=== PATIENT | male | born 1975 | race African-American/Black ===

== ENCOUNTER 2018-05-14 14:09 | Inpatient (IN) | payer MEDICAID ==
[~2018-05-14] VITALS: Ht 183.5 cm; Wt 162.5 kg
[~2018-05-14 14:09] MED LIST: ETOMIDATE 2MG/ML 10ML VIAL IV ONE; SUCCINYLCHOLINE CHLORIDE 200MG/10ML IV ONE
[2018-05-14] MEDS ORDERED: FUROSEMIDE 40MG/4ML VIAL IV ONE (15:00)
[2018-05-14] MEDS ORDERED: NITROGLYCERIN OINT 1GM/INCH UDPKT TD ONE (15:00)
[2018-05-14] MEDS ORDERED: ASPIRIN 81MG TABLET PO ONE (15:00)
[2018-05-14] MEDS ORDERED: LORAZEPAM 2MG/ML CPJ IM ONE (15:45)
[2018-05-14] MEDS ORDERED: LORAZEPAM 2MG/ML CPJ ONE (16:28)
[2018-05-14] MEDS ORDERED: HALOPERIDOL LACTATE 5MG/ML VIAL IM ONE ×2 (16:32→17:00)
[2018-05-14] MEDS ORDERED: LORAZEPAM 2MG/ML CPJ IM STA (16:53)
[2018-05-14] MEDS ORDERED: LORAZEPAM 2MG/ML CPJ IV ONE (17:00)
[2018-05-14 17:06] LABS: CHLORIDE 97 mEq/L (98-107)
[2018-05-14 17:11] LABS: HEMATOCRIT. 47.7 % (42.0-52.0); HEMOGLOBIN. 14.5 g/dL (14.0-18.0); INR 1.6; MEAN CORPUSCULAR HEMOGLOBIN 27.5 pg (28.0-32.0); MEAN CORPUSCULAR VOLUME 90.3 fL (80.0-94.0); MEAN PLATELET VOLUME 10.3 fl (7.4-10.4); PARTIAL THROMBOPLASTIN TIME 25.2 sec (23.4-31.0); PLATELET 202 x1000/uL (130-400); PROTHROMBIN TIME 15.8 sec (9.1-11.1); RED BLOOD CELL COUNT 5.28 mill/uL (4.7-6.1); RED CELL DISTRIBUTION WIDTH 16.6 % (11.6-14.6)
[2018-05-14 17:19] LABS: PLATELET ESTIMATE NORMAL
[2018-05-14] MEDS ORDERED: PROPOFOL 10MG/ML 100ML 100 ML IV ONE (22:30)
[2018-05-14] MEDS ORDERED: PROPOFOL 10MG/ML 100ML 100 ML IV SCH (22:30)
[2018-05-14] MEDS ORDERED: SUCCINYLCHOLINE CHLORIDE 200MG/10ML IV ONE (22:30)
[2018-05-14] MEDS ORDERED: ETOMIDATE 2MG/ML 10ML VIAL IV ONE (22:30)
[2018-05-15] VITALS (23 sets, daily range): BP systolic 105–149; BP diastolic 69–110
[2018-05-15 00:15] LABS: BG BASE EXCESS 2.3 mmol/L (-2.0-2.0); BG CARBOXYHEMOGLOBIN 2.6 % (0.5-1.5); BG DEOXYHEMOGLOBIN 1.6 % (0.0-5.0); BG FRACTION INSPIRED OXYGEN 100; BG HCO3 ACT 32.4 mmol/L (22.0-26.0); BG METHEMOGLOBIN 0.3 % (0.0-1.5); BG OXYGEN SATURATION 98.4 % (92.0-98.5); BG OXYHEMOGLOBIN 95.5 % (94.0-97.0); BG PCO2 76.7 mmHg (35.0-45.0); BG PH 7.243 (7.350-7.450); BG PO2 132.4 mmHg (75.0-100.0); BG SAMPLE SITE RIGHT BRACHIAL; BG TIDAL VOLUME(mL) 550 mL; BG TOTAL HEMOGLOBIN 15.4 g/dL (12.0-18.0); BG VENT MODE 16; BG VENT RATE 16 set
[2018-05-15] MEDS: MIDAZOLAM HCL 50 MG in DEXTROSE 5% WATER 40 ML IV SCH ×2 (04:12→10:52)
[2018-05-15] MEDS ORDERED: ONDANSETRON HCL 4MG/2ML INJ IV PRN (08:30)
[2018-05-15 09:45] LABS: BG BASE EXCESS 8.5 mmol/L (-2.0-2.0); BG CARBOXYHEMOGLOBIN 1.4 % (0.5-1.5); BG DEOXYHEMOGLOBIN 0.5 % (0.0-5.0); BG FRACTION INSPIRED OXYGEN 90; BG HCO3 ACT 31.7 mmol/L (22.0-26.0); BG METHEMOGLOBIN 0.3 % (0.0-1.5); BG OXYGEN SATURATION 99.5 % (92.0-98.5); BG OXYHEMOGLOBIN 97.8 % (94.0-97.0); BG PCO2 38.4 mmHg (35.0-45.0); BG PH 7.534 (7.350-7.450); BG PO2 204.6 mmHg (75.0-100.0); BG SAMPLE SITE LEFT RADIAL; BG TIDAL VOLUME(mL) 650 mL; BG TOTAL HEMOGLOBIN 14.6 g/dL (12.0-18.0); BG VENT MODE VENT - A/C; BG VENT RATE 20 set
[2018-05-15] MEDS: IPRATROPIUM/ALBUTEROL 0.5-3(2.5)MG/3ML NEB HHN SCH ×2 (13:41→21:06)
[2018-05-15] MEDS: PROPOFOL 10MG/ML 100ML 100 ML IV PRN ×3 (13:49→21:43)
[2018-05-15] MEDS: FUROSEMIDE 40MG/4ML VIAL IVP SCH ×2 (13:56→20:39)
[2018-05-15] MEDS: PANTOPRAZOLE SODIUM 40 MG/VIAL IV SCH (13:56)
[2018-05-15] MEDS: ENOXAPARIN 40MG/0.4ML SYR SUBCUT SCH ×2 (13:57→20:43)
[2018-05-15] MEDS: IPRATROPIUM/ALBUTEROL 0.5-3(2.5)MG/3ML NEB HHN PRN (16:10)
[2018-05-16] VITALS (56 sets, daily range): BP systolic 71–174; BP diastolic 43–109
[2018-05-16] MEDS: PROPOFOL 10MG/ML 100ML 100 ML IV PRN ×6 (01:35→21:28)
[2018-05-16] MEDS: IPRATROPIUM/ALBUTEROL 0.5-3(2.5)MG/3ML NEB HHN SCH ×4 (02:30→20:21)
[2018-05-16] MEDS: DEXTROSE 50% WATER 50ML SYRINGE IV PRN ×2 (04:53→16:11)
[2018-05-16] MEDS: BLOOD SUGAR DIAGNOSTIC STRIP TEST SCH ×3 (06:00→18:00)
[2018-05-16 06:23] LABS: BASOPHILS % 0.4 % (0.0-2.0); EOSINOPHILS % 0.6 % (0.0-5.0); HEMATOCRIT. 47.8 % (42.0-52.0); HEMOGLOBIN. 15.2 g/dL (14.0-18.0); LYMPHOCYTES % 17.9 % (20.0-50.0); MEAN CORPUSCULAR HEMOGLOBIN 27.8 pg (28.0-32.0); MEAN CORPUSCULAR VOLUME 87.4 fL (80.0-94.0); MEAN PLATELET VOLUME 9.8 fl (7.4-10.4); MONOCYTES % 8.1 % (2.0-8.0); PLATELET 148 x1000/uL (130-400); RED BLOOD CELL COUNT 5.47 mill/uL (4.7-6.1); RED CELL DISTRIBUTION WIDTH 16.6 % (11.6-14.6)
[2018-05-16 06:44] LABS: CHLORIDE 100 mEq/L (98-107)
[2018-05-16 07:33] LABS: BG BASE EXCESS 9.6 mmol/L (-2.0-2.0); BG CARBOXYHEMOGLOBIN 1.8 % (0.5-1.5); BG DEOXYHEMOGLOBIN 3.1 % (0.0-5.0); BG HCO3 ACT 33.9 mmol/L (22.0-26.0); BG METHEMOGLOBIN 0.4 % (0.0-1.5); BG OXYGEN SATURATION 96.8 % (92.0-98.5); BG OXYHEMOGLOBIN 94.7 % (94.0-97.0); BG PH 7.505 (7.350-7.450); BG PO2 86.9 mmHg (75.0-100.0); BG SAMPLE SITE RIGHT RADIAL; BG TIDAL VOLUME(mL) 650 mL; BG VENT MODE VENT - A/C; BG VENT RATE 16 set
[2018-05-16] MEDS ORDERED: POTASSIUM CHLORIDE 20MEQ/PACKET PO NR (09:15)
[2018-05-16] MEDS: PANTOPRAZOLE SODIUM 40 MG/VIAL IV SCH (09:55)
[2018-05-16] MEDS: FUROSEMIDE 100MG/10ML VIAL IVP SCH ×3 (09:56→18:00)
[2018-05-16] MEDS: ENOXAPARIN 40MG/0.4ML SYR SUBCUT SCH ×2 (09:58→21:29)
[2018-05-17] VITALS (50 sets, daily range): BP systolic 89–126; BP diastolic 46–69
[2018-05-17] MEDS: BLOOD SUGAR DIAGNOSTIC STRIP TEST SCH
[2018-05-17] MEDS: PROPOFOL 10MG/ML 100ML 100 ML IV PRN ×6 (01:13→23:55)
[2018-05-17] MEDS: IPRATROPIUM/ALBUTEROL 0.5-3(2.5)MG/3ML NEB HHN SCH ×4 (02:02→20:25)
[2018-05-17 06:31] LABS: HEMATOCRIT. 45.5 % (42.0-52.0); HEMOGLOBIN. 14.4 g/dL (14.0-18.0); MEAN CORPUSCULAR HEMOGLOBIN 27.7 pg (28.0-32.0); MEAN CORPUSCULAR VOLUME 87.5 fL (80.0-94.0); MEAN PLATELET VOLUME 10.1 fl (7.4-10.4); PLATELET 163 x1000/uL (130-400); RED CELL DISTRIBUTION WIDTH 16.7 % (11.6-14.6)
[2018-05-17 06:55] LABS: CHLORIDE 100 mEq/L (98-107)
[2018-05-17 09:16] LABS: BG BASE EXCESS 14.8 mmol/L (-2.0-2.0); BG CARBOXYHEMOGLOBIN 1.4 % (0.5-1.5); BG DEOXYHEMOGLOBIN 2.8 % (0.0-5.0); BG FRACTION INSPIRED OXYGEN 50; BG HCO3 ACT 41.4 mmol/L (22.0-26.0); BG METHEMOGLOBIN 0.2 % (0.0-1.5); BG OXYGEN SATURATION 97.2 % (92.0-98.5); BG OXYHEMOGLOBIN 95.6 % (94.0-97.0); BG PCO2 57.5 mmHg (35.0-45.0); BG PH 7.475 (7.350-7.450); BG PO2 96.6 mmHg (75.0-100.0); BG SAMPLE SITE RIGHT RADIAL; BG TIDAL VOLUME(mL) 650 mL; BG TOTAL HEMOGLOBIN 15.2 g/dL (12.0-18.0); BG VENT MODE VENT - A/C; BG VENT RATE 12 set
[2018-05-17] MEDS: FUROSEMIDE 100MG/10ML VIAL IVP SCH ×2 (11:28→17:59)
[2018-05-17] MEDS: PANTOPRAZOLE SODIUM 40 MG/VIAL IV SCH (11:28)
[2018-05-17] MEDS ORDERED: LORAZEPAM 2MG/ML CPJ IV PRN ×2 (11:30)
[2018-05-17] MEDS: ENOXAPARIN 40MG/0.4ML SYR SUBCUT SCH ×2 (11:31→21:29)
[2018-05-17] MEDS: LORAZEPAM 2MG/ML CPJ IV PRN (11:38)
[2018-05-17] MEDS: SULFACETAMIDE SODIUM 10% OPHTH DROPS 15ML BOTHEYE SCH ×3 (13:33→21:35)
[2018-05-17 14:52] LABS: PLATELET ESTIMATE NORMAL
[2018-05-18] VITALS (49 sets, daily range): BP systolic 104–136; BP diastolic 48–74
[2018-05-18] MEDS: PROPOFOL 10MG/ML 100ML 100 ML IV PRN ×7 (02:23→20:22)
[2018-05-18] MEDS: IPRATROPIUM/ALBUTEROL 0.5-3(2.5)MG/3ML NEB HHN SCH ×4 (02:30→20:39)
[2018-05-18 05:01] LABS: HEMATOCRIT. 48.7 % (42.0-52.0); HEMOGLOBIN. 15.3 g/dL (14.0-18.0); MEAN CORPUSCULAR HEMOGLOBIN 27.9 pg (28.0-32.0); MEAN CORPUSCULAR VOLUME 88.8 fL (80.0-94.0); MEAN PLATELET VOLUME 10.5 fl (7.4-10.4); PLATELET 157 x1000/uL (130-400); RED BLOOD CELL COUNT 5.49 mill/uL (4.7-6.1); RED CELL DISTRIBUTION WIDTH 16.9 % (11.6-14.6)
[2018-05-18 05:19] LABS: CHLORIDE 99 mEq/L (98-107)
[2018-05-18] MEDS: FUROSEMIDE 100MG/10ML VIAL IVP SCH ×2 (06:58→17:18)
[2018-05-18] MEDS: BLOOD SUGAR DIAGNOSTIC STRIP TEST SCH ×4 (06:58→18:14)
[2018-05-18 07:22] LABS: PLATELET ESTIMATE NORMAL
[2018-05-18] MEDS: PANTOPRAZOLE SODIUM 40 MG/VIAL IV SCH (08:31)
[2018-05-18] MEDS: ENOXAPARIN 40MG/0.4ML SYR SUBCUT SCH ×2 (08:31→21:36)
[2018-05-18] MEDS: SULFACETAMIDE SODIUM 10% OPHTH DROPS 15ML BOTHEYE SCH ×4 (08:31→21:36)
[2018-05-18 08:57] LABS: BG BASE EXCESS 11.4 mmol/L (-2.0-2.0); BG CARBOXYHEMOGLOBIN 1.7 % (0.5-1.5); BG DEOXYHEMOGLOBIN 3.7 % (0.0-5.0); BG FRACTION INSPIRED OXYGEN 50; BG HCO3 ACT 38.5 mmol/L (22.0-26.0); BG METHEMOGLOBIN 0.4 % (0.0-1.5); BG OXYGEN SATURATION 96.2 % (92.0-98.5); BG OXYHEMOGLOBIN 94.2 % (94.0-97.0); BG PCO2 59.5 mmHg (35.0-45.0); BG PH 7.429 (7.350-7.450); BG PO2 84.6 mmHg (75.0-100.0); BG SAMPLE SITE RIGHT RADIAL; BG TIDAL VOLUME(mL) 650 mL; BG TOTAL HEMOGLOBIN 15.8 g/dL (12.0-18.0); BG VENT MODE VENT - A/C; BG VENT RATE 12 set
[2018-05-18] MEDS ORDERED: KCL 20MEQ/100ML PREMIX 100 ML IV SCH (18:00)
[2018-05-19] VITALS (37 sets, daily range): BP systolic 99–124; BP diastolic 51–70
[2018-05-19] MEDS: PROPOFOL 10MG/ML 100ML 100 ML IV PRN ×6 (00:37→21:55)
[2018-05-19] MEDS: BLOOD SUGAR DIAGNOSTIC STRIP TEST SCH ×2 (00:45→06:26)
[2018-05-19] MEDS: IPRATROPIUM/ALBUTEROL 0.5-3(2.5)MG/3ML NEB HHN SCH ×4 (02:02→20:24)
[2018-05-19 04:45] LABS: HEMATOCRIT. 47.7 % (42.0-52.0); HEMOGLOBIN. 14.8 g/dL (14.0-18.0); MEAN CORPUSCULAR HEMOGLOBIN 27.6 pg (28.0-32.0); MEAN CORPUSCULAR VOLUME 88.9 fL (80.0-94.0); MEAN PLATELET VOLUME 10.4 fl (7.4-10.4); PLATELET 151 x1000/uL (130-400); RED BLOOD CELL COUNT 5.37 mill/uL (4.7-6.1); RED CELL DISTRIBUTION WIDTH 16.5 % (11.6-14.6)
[2018-05-19 04:50] LABS: CHLORIDE 98 mEq/L (98-107)
[2018-05-19] MEDS: FUROSEMIDE 100MG/10ML VIAL IVP SCH (06:56)
[2018-05-19 07:33] LABS: BG BASE EXCESS 12.1 mmol/L (-2.0-2.0); BG DEOXYHEMOGLOBIN 4.1 % (0.0-5.0); BG FRACTION INSPIRED OXYGEN 50; BG HCO3 ACT 40.1 mmol/L (22.0-26.0); BG METHEMOGLOBIN 0.1 % (0.0-1.5); BG OXYGEN SATURATION 95.8 % (92.0-98.5); BG OXYHEMOGLOBIN 93.8 % (94.0-97.0); BG PCO2 65.4 mmHg (35.0-45.0); BG PH 7.405 (7.350-7.450); BG PO2 83.5 mmHg (75.0-100.0); BG SAMPLE SITE RIGHT RADIAL; BG TIDAL VOLUME(mL) 650 mL; BG TOTAL HEMOGLOBIN 15.4 g/dL (12.0-18.0); BG VENT MODE VENT - A/C; BG VENT RATE 12 set
[2018-05-19] MEDS: SULFACETAMIDE SODIUM 10% OPHTH DROPS 15ML BOTHEYE SCH ×4 (08:39→21:57)
[2018-05-19] MEDS: PANTOPRAZOLE SODIUM 40 MG/VIAL IV SCH (08:39)
[2018-05-19] MEDS: ENOXAPARIN 40MG/0.4ML SYR SUBCUT SCH ×2 (08:40→21:52)
[2018-05-19 09:54] LABS: PLATELET ESTIMATE NORMAL
[2018-05-19] MEDS ORDERED: LORAZEPAM 2MG/ML CPJ IV PRN (10:45)
[2018-05-19] MEDS ORDERED: LACTULOSE 20G/30ML UDC PO NR (11:30)
[2018-05-19] MEDS ORDERED: BISACODYL 10MG SUPP PR PRN (11:30)
[2018-05-19] MEDS: DOCUSATE SODIUM SUGAR FREE 100MG/10ML UDC NG SCH (12:09)
[2018-05-19] MEDS: ACETAMINOPHEN 325MG TABLET PO PRN ×2 (12:17→20:07)
[2018-05-19] MEDS: PIPERACILLIN/TAZ 3.375G PREMIX 50 ML IV SCH ×2 (16:31→21:53)
[2018-05-19 19:31] LABS: CLARITY URINE CLOUDY (CLEAR); COLOR URINE DARK YELLOW (YELLOW); KETONES URINE NEGATIVE (NEGATIVE); LEUKOCYTE ESTERASE URINE 1+ (NEGATIVE); NITRITE URINE NEGATIVE (NEGATIVE); OCCULT BLOOD URINE 3+ (NEGATIVE); PH URINE 8.5 (4.5-8.0); PROTEIN URINE 2+ (NEGATIVE); SPECIFIC GRAVITY URINE 1.029 (1.005-1.030)
[2018-05-19] MEDS: RISPERIDONE 1MG TABLET PO SCH (21:52)
[2018-05-19] MEDS: FUROSEMIDE 40 MG/4 ML UD CUP NG SCH (21:52)
[2018-05-20] VITALS (38 sets, daily range): BP systolic 91–123; BP diastolic 43–65
[2018-05-20] MEDS: IPRATROPIUM/ALBUTEROL 0.5-3(2.5)MG/3ML NEB HHN SCH ×4 (00:39→20:25)
[2018-05-20 05:00] LABS: HEMATOCRIT. 45.8 % (42.0-52.0); HEMOGLOBIN. 14.2 g/dL (14.0-18.0); MEAN CORPUSCULAR HEMOGLOBIN 27.7 pg (28.0-32.0); MEAN CORPUSCULAR VOLUME 89.1 fL (80.0-94.0); MEAN PLATELET VOLUME 10.7 fl (7.4-10.4); PLATELET 154 x1000/uL (130-400); RED BLOOD CELL COUNT 5.14 mill/uL (4.7-6.1)
[2018-05-20 05:11] LABS: CHLORIDE 100 mEq/L (98-107)
[2018-05-20] MEDS: PIPERACILLIN/TAZ 3.375G PREMIX 50 ML IV SCH ×3 (06:03→21:30)
[2018-05-20] MEDS: PROPOFOL 10MG/ML 100ML 100 ML IV PRN ×4 (06:36→22:21)
[2018-05-20] MEDS: DOCUSATE SODIUM SUGAR FREE 100MG/10ML UDC NG SCH (08:22)
[2018-05-20] MEDS: PANTOPRAZOLE SODIUM 40 MG/VIAL IV SCH (08:22)
[2018-05-20] MEDS: FUROSEMIDE 40 MG/4 ML UD CUP NG SCH ×2 (08:22→22:24)
[2018-05-20] MEDS: ENOXAPARIN 40MG/0.4ML SYR SUBCUT SCH ×2 (08:24→22:25)
[2018-05-20] MEDS: RISPERIDONE 1MG TABLET PO SCH ×2 (08:24→21:00)
[2018-05-20] MEDS: SULFACETAMIDE SODIUM 10% OPHTH DROPS 15ML BOTHEYE SCH ×4 (08:24→22:24)
[2018-05-20 08:28] LABS: BG BASE EXCESS 12.7 mmol/L (-2.0-2.0); BG CARBOXYHEMOGLOBIN 1.9 % (0.5-1.5); BG DEOXYHEMOGLOBIN 2.1 % (0.0-5.0); BG FRACTION INSPIRED OXYGEN 50; BG HCO3 ACT 40.2 mmol/L (22.0-26.0); BG METHEMOGLOBIN 0.3 % (0.0-1.5); BG OXYGEN SATURATION 97.9 % (92.0-98.5); BG OXYHEMOGLOBIN 95.7 % (94.0-97.0); BG PCO2 63.1 mmHg (35.0-45.0); BG PH 7.422 (7.350-7.450); BG PO2 103.9 mmHg (75.0-100.0); BG SAMPLE SITE LEFT RADIAL; BG TIDAL VOLUME(mL) 650 mL; BG TOTAL HEMOGLOBIN 14.7 g/dL (12.0-18.0); BG VENT MODE VENT - A/C; BG VENT RATE 12 set
[2018-05-20] MEDS ORDERED: SORBITOL 70% SOLN 30ML PO SCH (11:00)
[2018-05-20 12:30] LABS: PLATELET ESTIMATE NORMAL
[2018-05-20] MEDS: LORAZEPAM 2MG/ML CPJ IV PRN ×2 (12:35→20:42)
[2018-05-20] MEDS ORDERED: PIPERACILLIN/TAZ 3.375G PREMIX 50 ML IV SCH (18:00)
[2018-05-21] VITALS (40 sets, daily range): BP systolic 93–153; BP diastolic 31–81
[2018-05-21] MEDS: PROPOFOL 10MG/ML 100ML 100 ML IV PRN ×3 (02:03→07:46)
[2018-05-21] MEDS: PIPERACILLIN/TAZ 3.375G PREMIX 50 ML IV SCH ×4 (03:04→21:20)
[2018-05-21 07:25] LABS: HEMOGLOBIN. 13.5 g/dL (14.0-18.0); MEAN CORPUSCULAR HEMOGLOBIN 27.9 pg (28.0-32.0); MEAN CORPUSCULAR VOLUME 89.3 fL (80.0-94.0); MEAN PLATELET VOLUME 11.9 fl (7.4-10.4); PLATELET 188 x1000/uL (130-400); RED BLOOD CELL COUNT 4.82 mill/uL (4.7-6.1); RED CELL DISTRIBUTION WIDTH 16.8 % (11.6-14.6)
[2018-05-21 07:59] LABS: CHLORIDE 101 mEq/L (98-107)
[2018-05-21 08:27] LABS: BG BASE EXCESS 14.9 mmol/L (-2.0-2.0); BG CARBOXYHEMOGLOBIN 1.5 % (0.5-1.5); BG DEOXYHEMOGLOBIN 2.7 % (0.0-5.0); BG FRACTION INSPIRED OXYGEN 50; BG HCO3 ACT 43.1 mmol/L (22.0-26.0); BG METHEMOGLOBIN 0.5 % (0.0-1.5); BG OXYGEN SATURATION 97.2 % (92.0-98.5); BG OXYHEMOGLOBIN 95.3 % (94.0-97.0); BG PCO2 68.6 mmHg (35.0-45.0); BG PH 7.416 (7.350-7.450); BG PO2 97.5 mmHg (75.0-100.0); BG SAMPLE SITE RIGHT RADIAL; BG TIDAL VOLUME(mL) 650 mL; BG TOTAL HEMOGLOBIN 14.7 g/dL (12.0-18.0); BG VENT MODE VENT - A/C; BG VENT RATE 12 set
[2018-05-21] MEDS: DOCUSATE SODIUM SUGAR FREE 100MG/10ML UDC NG SCH (09:07)
[2018-05-21] MEDS: PANTOPRAZOLE SODIUM 40 MG/VIAL IV SCH (09:07)
[2018-05-21] MEDS: RISPERIDONE 1MG TABLET PO SCH ×2 (09:08→21:20)
[2018-05-21] MEDS: FUROSEMIDE 40 MG/4 ML UD CUP NG SCH ×2 (09:08→21:20)
[2018-05-21] MEDS: ENOXAPARIN 40MG/0.4ML SYR SUBCUT SCH ×2 (09:13→21:20)
[2018-05-21] MEDS: IPRATROPIUM/ALBUTEROL 0.5-3(2.5)MG/3ML NEB HHN SCH ×4 (09:17→20:21)
[2018-05-21 09:32] LABS: PLATELET ESTIMATE NORMAL
[2018-05-21] MEDS: SULFACETAMIDE SODIUM 10% OPHTH DROPS 15ML BOTHEYE SCH ×4 (09:42→21:23)
[2018-05-21] MEDS: LORAZEPAM 2MG/ML CPJ IV PRN ×2 (11:41→20:44)
[2018-05-21 13:01] LABS: BG BASE EXCESS 12.5 mmol/L (-2.0-2.0); BG CARBOXYHEMOGLOBIN 1.5 % (0.5-1.5); BG FRACTION INSPIRED OXYGEN 50; BG HCO3 ACT 40.8 mmol/L (22.0-26.0); BG METHEMOGLOBIN 0.3 % (0.0-1.5); BG OXYGEN SATURATION 94.9 % (92.0-98.5); BG OXYHEMOGLOBIN 93.2 % (94.0-97.0); BG PCO2 68.8 mmHg (35.0-45.0); BG PEEP (cmH2O) 0 cmH2O; BG PH 7.391 (7.350-7.450); BG PO2 80.5 mmHg (75.0-100.0); BG SAMPLE SITE RIGHT RADIAL; BG TOTAL HEMOGLOBIN 14.8 g/dL (12.0-18.0); BG VENT MODE VENT - CPAP
[2018-05-21] MEDS ORDERED: RACEPINEPHRINE 2.25% 0.5ML NEB VIAL HHN PRN (15:45)
[2018-05-21] MEDS ORDERED: METHYLPREDNISOLONE SOD SUCC 125 MG/2 ML VIAL IV NR (17:15)
[2018-05-21] MEDS: ACETAMINOPHEN 325MG TABLET PO PRN (17:36)
[2018-05-21 18:31] LABS: BG BASE EXCESS 12.4 mmol/L (-2.0-2.0); BG BILEVEL POS AIRWAY PRESSURE 15/5; BG CARBOXYHEMOGLOBIN 1.7 % (0.5-1.5); BG DEOXYHEMOGLOBIN 10.2 % (0.0-5.0); BG FRACTION INSPIRED OXYGEN 40; BG HCO3 ACT 43.6 mmol/L (22.0-26.0); BG METHEMOGLOBIN 0.4 % (0.0-1.5); BG OXYGEN SATURATION 89.6 % (92.0-98.5); BG OXYHEMOGLOBIN 87.7 % (94.0-97.0); BG PCO2 91.3 mmHg (35.0-45.0); BG PH 7.297 (7.350-7.450); BG PO2 63.6 mmHg (75.0-100.0); BG SAMPLE SITE RIGHT RADIAL; BG TOTAL HEMOGLOBIN 15.3 g/dL (12.0-18.0); BG VENT MODE MASK - BIPAP; BG VENT RATE 16 set
[2018-05-22] VITALS (39 sets, daily range): BP systolic 115–166; BP diastolic 58–102
[2018-05-22] MEDS: IPRATROPIUM/ALBUTEROL 0.5-3(2.5)MG/3ML NEB HHN SCH ×4 (02:09→20:37)
[2018-05-22] MEDS: METHYLPREDNISOLONE SOD SUCC 40 MG/ML VIAL IV SCH ×3 (02:26→17:10)
[2018-05-22] MEDS: DEXTROSE 5% WATER 1,000 ML IV SCH (02:47)
[2018-05-22] MEDS: PIPERACILLIN/TAZ 3.375G PREMIX 50 ML IV SCH ×4 (02:49→21:40)
[2018-05-22 05:49] LABS: BASOPHILS % 0.3 % (0.0-2.0); HEMATOCRIT. 46.3 % (42.0-52.0); HEMOGLOBIN. 14.2 g/dL (14.0-18.0); MEAN CORPUSCULAR HEMOGLOBIN 27.9 pg (28.0-32.0); MEAN CORPUSCULAR VOLUME 91.2 fL (80.0-94.0); MEAN PLATELET VOLUME 10.7 fl (7.4-10.4); MONOCYTES % 12.8 % (2.0-8.0); NEUTROPHILS % 72.9 % (40.0-76.0); PLATELET 188 x1000/uL (130-400); RED BLOOD CELL COUNT 5.08 mill/uL (4.7-6.1); RED CELL DISTRIBUTION WIDTH 16.8 % (11.6-14.6)
[2018-05-22] MEDS: LORAZEPAM 2MG/ML CPJ IV PRN ×2 (05:58→11:28)
[2018-05-22 06:15] LABS: CHLORIDE 103 mEq/L (98-107)
[2018-05-22 07:47] LABS: BG BASE EXCESS 12.9 mmol/L (-2.0-2.0); BG BILEVEL POS AIRWAY PRESSURE 20/5; BG CARBOXYHEMOGLOBIN 1.7 % (0.5-1.5); BG DEOXYHEMOGLOBIN 2.1 % (0.0-5.0); BG FRACTION INSPIRED OXYGEN 50; BG HCO3 ACT 41.8 mmol/L (22.0-26.0); BG METHEMOGLOBIN 0.2 % (0.0-1.5); BG OXYGEN SATURATION 97.9 % (92.0-98.5); BG PCO2 73.2 mmHg (35.0-45.0); BG PH 7.375 (7.350-7.450); BG PO2 103.9 mmHg (75.0-100.0); BG SAMPLE SITE RIGHT RADIAL; BG TOTAL HEMOGLOBIN 15.1 g/dL (12.0-18.0); BG VENT MODE MASK - BIPAP
[2018-05-22] MEDS: DOCUSATE SODIUM SUGAR FREE 100MG/10ML UDC NG SCH (09:00)
[2018-05-22] MEDS: RISPERIDONE 1MG TABLET PO SCH ×2 (09:00→21:40)
[2018-05-22] MEDS: ENOXAPARIN 40MG/0.4ML SYR SUBCUT SCH ×2 (09:29→21:40)
[2018-05-22] MEDS: SULFACETAMIDE SODIUM 10% OPHTH DROPS 15ML BOTHEYE SCH ×4 (09:29→22:37)
[2018-05-22] MEDS: PANTOPRAZOLE SODIUM 40 MG/VIAL IV SCH (09:29)
[2018-05-22] MEDS ORDERED: FUROSEMIDE 100MG/10ML VIAL IVP SCH (10:00)
[2018-05-22] MEDS: IPRATROPIUM/ALBUTEROL 0.5-3(2.5)MG/3ML NEB HHN PRN (11:35)
[2018-05-22] MEDS ORDERED: LORAZEPAM 2MG/ML CPJ IV PRN (11:45)
[2018-05-22 12:23] LABS: BG BASE EXCESS 12.8 mmol/L (-2.0-2.0); BG BILEVEL POS AIRWAY PRESSURE 20/5; BG CARBOXYHEMOGLOBIN 1.9 % (0.5-1.5); BG DEOXYHEMOGLOBIN 4.1 % (0.0-5.0); BG FRACTION INSPIRED OXYGEN 50; BG METHEMOGLOBIN 0.3 % (0.0-1.5); BG OXYGEN SATURATION 95.8 % (92.0-98.5); BG OXYHEMOGLOBIN 93.7 % (94.0-97.0); BG PCO2 74.1 mmHg (35.0-45.0); BG PH 7.371 (7.350-7.450); BG PO2 80.4 mmHg (75.0-100.0); BG SAMPLE SITE RIGHT RADIAL; BG TOTAL HEMOGLOBIN 15.5 g/dL (12.0-18.0); BG VENT MODE MASK - BIPAP
[2018-05-22] MEDS: FUROSEMIDE 100MG/10ML VIAL IVP SCH (15:01)
[2018-05-22] MEDS ORDERED: MORPHINE SULFATE 4 MG/ML CPJ (NOT FOR IM USE) IV NR (16:30)
[2018-05-22] MEDS: ACETYLCYSTEINE 100MG/ML 10% VIAL 4ML INH SCH (16:32)
[2018-05-22] MEDS ORDERED: PROPOFOL 10MG/ML 100ML 100 ML IV PRN ×2 (20:30→22:10)
[2018-05-22] MEDS: PROPOFOL 10MG/ML 100ML 100 ML IV PRN (21:07)
[2018-05-22 21:22] LABS: BG BASE EXCESS 10.1 mmol/L (-2.0-2.0); BG CARBOXYHEMOGLOBIN 1.5 % (0.5-1.5); BG DEOXYHEMOGLOBIN 1.6 % (0.0-5.0); BG FRACTION INSPIRED OXYGEN 100; BG HCO3 ACT 39.7 mmol/L (22.0-26.0); BG METHEMOGLOBIN 0.4 % (0.0-1.5); BG OXYGEN SATURATION 98.4 % (92.0-98.5); BG OXYHEMOGLOBIN 96.5 % (94.0-97.0); BG PO2 118.4 mmHg (75.0-100.0); BG SAMPLE SITE RIGHT RADIAL; BG TIDAL VOLUME(mL) 600 mL; BG TOTAL HEMOGLOBIN 15.1 g/dL (12.0-18.0); BG VENT MODE VENT - A/C; BG VENT RATE 16 set
[2018-05-23] VITALS (48 sets, daily range): BP systolic 105–154; BP diastolic 62–96
[2018-05-23] MEDS: METHYLPREDNISOLONE SOD SUCC 40 MG/ML VIAL IV SCH ×3 (01:50→17:35)
[2018-05-23] MEDS: IPRATROPIUM/ALBUTEROL 0.5-3(2.5)MG/3ML NEB HHN SCH ×4 (02:04→20:05)
[2018-05-23] MEDS: ACETYLCYSTEINE 100MG/ML 10% VIAL 4ML INH SCH ×2 (02:04→08:43)
[2018-05-23] MEDS: PIPERACILLIN/TAZ 3.375G PREMIX 50 ML IV SCH ×4 (03:10→21:39)
[2018-05-23] MEDS: PROPOFOL 10MG/ML 100ML 100 ML IV PRN ×6 (03:10→21:36)
[2018-05-23] MEDS: DEXTROSE 5% WATER 1,000 ML IV SCH (05:51)
[2018-05-23] MEDS: FUROSEMIDE 100MG/10ML VIAL IVP SCH ×2 (05:55→17:35)
[2018-05-23 06:15] LABS: HEMATOCRIT. 46.8 % (42.0-52.0); HEMOGLOBIN. 14.5 g/dL (14.0-18.0); MEAN CORPUSCULAR HEMOGLOBIN 27.9 pg (28.0-32.0); MEAN CORPUSCULAR VOLUME 90.1 fL (80.0-94.0); MEAN PLATELET VOLUME 10.9 fl (7.4-10.4); PLATELET 199 x1000/uL (130-400); RED BLOOD CELL COUNT 5.19 mill/uL (4.7-6.1); RED CELL DISTRIBUTION WIDTH 16.7 % (11.6-14.6)
[2018-05-23 06:21] LABS: CHLORIDE 104 mEq/L (98-107)
[2018-05-23 08:42] LABS: BG BASE EXCESS 18.4 mmol/L (-2.0-2.0); BG CARBOXYHEMOGLOBIN 1.2 % (0.5-1.5); BG DEOXYHEMOGLOBIN 1.6 % (0.0-5.0); BG FRACTION INSPIRED OXYGEN 90; BG HCO3 ACT 47.3 mmol/L (22.0-26.0); BG METHEMOGLOBIN 0.5 % (0.0-1.5); BG OXYGEN SATURATION 98.4 % (92.0-98.5); BG OXYHEMOGLOBIN 96.7 % (94.0-97.0); BG PCO2 72.2 mmHg (35.0-45.0); BG PH 7.434 (7.350-7.450); BG PO2 112.3 mmHg (75.0-100.0); BG SAMPLE SITE RIGHT RADIAL; BG TIDAL VOLUME(mL) 550 mL; BG TOTAL HEMOGLOBIN 15.4 g/dL (12.0-18.0); BG VENT MODE VENT - A/C; BG VENT RATE 16 set
[2018-05-23] MEDS: PANTOPRAZOLE SODIUM 40 MG/VIAL IV SCH (09:08)
[2018-05-23] MEDS: DOCUSATE SODIUM SUGAR FREE 100MG/10ML UDC NG SCH (09:08)
[2018-05-23] MEDS: SULFACETAMIDE SODIUM 10% OPHTH DROPS 15ML BOTHEYE SCH ×4 (09:09→21:40)
[2018-05-23] MEDS: RISPERIDONE 1MG TABLET PO SCH ×2 (09:09→21:39)
[2018-05-23] MEDS: ENOXAPARIN 40MG/0.4ML SYR SUBCUT SCH ×2 (09:09→21:40)
[2018-05-23] MEDS: DILTIAZEM HCL 30MG TABLET NG SCH ×2 (09:24→17:35)
[2018-05-23] MEDS ORDERED: LIDOCAINE HCL 1% 20ML VIAL (Pyxis) INJ ONE (13:09)
[2018-05-23] MEDS ORDERED: PROPOFOL 10MG/ML 100ML 100 ML IV PRN (17:39)
[2018-05-24] VITALS (49 sets, daily range): BP systolic 109–157; BP diastolic 59–124
[2018-05-24] MEDS: METHYLPREDNISOLONE SOD SUCC 40 MG/ML VIAL IV SCH ×3 (00:54→17:56)
[2018-05-24] MEDS: DILTIAZEM HCL 30MG TABLET NG SCH ×4 (00:54→17:56)
[2018-05-24] MEDS: IPRATROPIUM/ALBUTEROL 0.5-3(2.5)MG/3ML NEB HHN SCH ×5 (02:08→20:41)
[2018-05-24] MEDS: ACETYLCYSTEINE 100MG/ML 10% VIAL 4ML INH SCH ×4 (02:08→20:40)
[2018-05-24] MEDS: PROPOFOL 10MG/ML 100ML 100 ML IV PRN ×11 (02:49→23:39)
[2018-05-24] MEDS: PIPERACILLIN/TAZ 3.375G PREMIX 50 ML IV SCH ×4 (03:22→22:13)
[2018-05-24 04:11] LABS: ATYPICAL LYMPHOCYTES 1; PLATELET ESTIMATE NORMAL
[2018-05-24] MEDS: FUROSEMIDE 100MG/10ML VIAL IVP SCH ×2 (05:21→17:56)
[2018-05-24 06:42] LABS: HEMATOCRIT. 49.1 % (42.0-52.0); HEMOGLOBIN. 15.2 g/dL (14.0-18.0); MEAN CORPUSCULAR HEMOGLOBIN 27.5 pg (28.0-32.0); MEAN CORPUSCULAR VOLUME 88.7 fL (80.0-94.0); MEAN PLATELET VOLUME 11.1 fl (7.4-10.4); PLATELET 217 x1000/uL (130-400); RED BLOOD CELL COUNT 5.54 mill/uL (4.7-6.1); RED CELL DISTRIBUTION WIDTH 16.5 % (11.6-14.6)
[2018-05-24 06:50] LABS: CHLORIDE 101 mEq/L (98-107)
[2018-05-24 07:56] LABS: BG BASE EXCESS 11.6 mmol/L (-2.0-2.0); BG CARBOXYHEMOGLOBIN 0.9 % (0.5-1.5); BG DEOXYHEMOGLOBIN 5.3 % (0.0-5.0); BG HCO3 ACT 37.1 mmol/L (22.0-26.0); BG METHEMOGLOBIN 0.1 % (0.0-1.5); BG OXYGEN SATURATION 94.6 % (92.0-98.5); BG OXYHEMOGLOBIN 93.7 % (94.0-97.0); BG PCO2 50.1 mmHg (35.0-45.0); BG PH 7.487 (7.350-7.450); BG PO2 72.3 mmHg (75.0-100.0); BG SAMPLE SITE RIGHT RADIAL; BG TIDAL VOLUME(mL) 600 mL; BG TOTAL HEMOGLOBIN 15.7 g/dL (12.0-18.0); BG VENT MODE VENT - A/C; BG VENT RATE 16 set
[2018-05-24] MEDS: DOCUSATE SODIUM SUGAR FREE 100MG/10ML UDC NG SCH (08:45)
[2018-05-24] MEDS: PANTOPRAZOLE SODIUM 40 MG/VIAL IV SCH (08:45)
[2018-05-24] MEDS: ENOXAPARIN 40MG/0.4ML SYR SUBCUT SCH ×2 (08:45→22:13)
[2018-05-24] MEDS: DEXTROSE 5% WATER 1,000 ML IV SCH (08:46)
[2018-05-24] MEDS: RISPERIDONE 1MG TABLET PO SCH ×2 (08:46→22:13)
[2018-05-24] MEDS: SULFACETAMIDE SODIUM 10% OPHTH DROPS 15ML BOTHEYE SCH ×2 (08:46→12:57)
[2018-05-24 14:41] LABS: PLATELET ESTIMATE NORMAL
[2018-05-25] VITALS (31 sets, daily range): BP systolic 102–144; BP diastolic 56–85
[2018-05-25] MEDS: METHYLPREDNISOLONE SOD SUCC 40 MG/ML VIAL IV SCH ×2 (00:18→09:31)
[2018-05-25] MEDS: DILTIAZEM HCL 30MG TABLET NG SCH ×4 (00:19→18:55)
[2018-05-25] MEDS: IPRATROPIUM/ALBUTEROL 0.5-3(2.5)MG/3ML NEB HHN SCH ×5 (00:45→21:10)
[2018-05-25] MEDS: PROPOFOL 10MG/ML 100ML 100 ML IV PRN ×4 (01:37→21:35)
[2018-05-25] MEDS: PIPERACILLIN/TAZ 3.375G PREMIX 50 ML IV SCH ×4 (04:55→21:48)
[2018-05-25] MEDS: DEXTROSE 5% WATER 1,000 ML IV SCH (04:55)
[2018-05-25] MEDS: FUROSEMIDE 100MG/10ML VIAL IVP SCH ×2 (05:20→18:55)
[2018-05-25 05:25] LABS: BASOPHILS % 0.3 % (0.0-2.0); EOSINOPHILS % 0.1 % (0.0-5.0); HEMATOCRIT. 50.7 % (42.0-52.0); HEMOGLOBIN. 15.8 g/dL (14.0-18.0); LYMPHOCYTES % 15.5 % (20.0-50.0); MEAN CORPUSCULAR HEMOGLOBIN 27.4 pg (28.0-32.0); MEAN CORPUSCULAR VOLUME 87.7 fL (80.0-94.0); MEAN PLATELET VOLUME 11.2 fl (7.4-10.4); MONOCYTES % 12.5 % (2.0-8.0); NEUTROPHILS % 71.6 % (40.0-76.0); PLATELET 243 x1000/uL (130-400); RED BLOOD CELL COUNT 5.79 mill/uL (4.7-6.1); RED CELL DISTRIBUTION WIDTH 16.6 % (11.6-14.6)
[2018-05-25 05:47] LABS: CHLORIDE 100 mEq/L (98-107)
[2018-05-25] MEDS: ACETYLCYSTEINE 100MG/ML 10% VIAL 4ML INH SCH ×3 (06:14→15:55)
[2018-05-25 08:10] LABS: BG CARBOXYHEMOGLOBIN 0.5 % (0.5-1.5); BG DEOXYHEMOGLOBIN 6.3 % (0.0-5.0); BG FRACTION INSPIRED OXYGEN 40; BG HCO3 ACT 35.4 mmol/L (22.0-26.0); BG METHEMOGLOBIN 0.9 % (0.0-1.5); BG OXYGEN SATURATION 93.6 % (92.0-98.5); BG OXYHEMOGLOBIN 92.3 % (94.0-97.0); BG PCO2 48.6 mmHg (35.0-45.0); BG PO2 69.3 mmHg (75.0-100.0); BG SAMPLE SITE LEFT RADIAL; BG TIDAL VOLUME(mL) 600 mL; BG TOTAL HEMOGLOBIN 16.8 g/dL (12.0-18.0); BG VENT MODE VENT - A/C; BG VENT RATE 16 set
[2018-05-25] MEDS: ENOXAPARIN 40MG/0.4ML SYR SUBCUT SCH ×2 (09:31→21:48)
[2018-05-25] MEDS: DOCUSATE SODIUM SUGAR FREE 100MG/10ML UDC NG SCH (09:31)
[2018-05-25] MEDS: RISPERIDONE 1MG TABLET PO SCH ×2 (09:31→21:48)
[2018-05-25] MEDS: PANTOPRAZOLE SODIUM 40 MG/VIAL IV SCH (09:31)
[2018-05-25] MEDS ORDERED: LORAZEPAM 2MG/ML CPJ IV PRN (10:00)
[2018-05-25] MEDS: IPRATROPIUM/ALBUTEROL 0.5-3(2.5)MG/3ML NEB HHN PRN (12:15)
[2018-05-25] MEDS ORDERED: METHYLPREDNISOLONE SOD SUCC 40 MG/ML VIAL IV SCH (17:00)
[2018-05-26] VITALS (43 sets, daily range): BP systolic 98–137; BP diastolic 42–88
[2018-05-26] MEDS: DILTIAZEM HCL 30MG TABLET NG SCH ×5 (00:02→23:57)
[2018-05-26] MEDS: PROPOFOL 10MG/ML 100ML 100 ML IV PRN ×8 (00:03→23:18)
[2018-05-26] MEDS: IPRATROPIUM/ALBUTEROL 0.5-3(2.5)MG/3ML NEB HHN PRN ×3 (00:38→12:13)
[2018-05-26] MEDS: ACETYLCYSTEINE 100MG/ML 10% VIAL 4ML INH SCH ×3 (00:38→16:43)
[2018-05-26] MEDS: DEXTROSE 5% WATER 1,000 ML IV SCH (02:58)
[2018-05-26] MEDS: PIPERACILLIN/TAZ 3.375G PREMIX 50 ML IV SCH ×4 (03:01→20:58)
[2018-05-26 05:51] LABS: BASOPHILS % 0.6 % (0.0-2.0); EOSINOPHILS % 1.3 % (0.0-5.0); HEMOGLOBIN. 15.9 g/dL (14.0-18.0); LYMPHOCYTES % 22.8 % (20.0-50.0); MEAN CORPUSCULAR HEMOGLOBIN 27.4 pg (28.0-32.0); MEAN CORPUSCULAR VOLUME 87.8 fL (80.0-94.0); MEAN PLATELET VOLUME 10.9 fl (7.4-10.4); NEUTROPHILS % 62.3 % (40.0-76.0); PLATELET 227 x1000/uL (130-400); RED CELL DISTRIBUTION WIDTH 16.6 % (11.6-14.6)
[2018-05-26 06:20] LABS: CHLORIDE 102 mEq/L (98-107)
[2018-05-26] MEDS: FUROSEMIDE 100MG/10ML VIAL IVP SCH ×2 (07:00→18:30)
[2018-05-26 08:11] LABS: BG BASE EXCESS 10.8 mmol/L (-2.0-2.0); BG DEOXYHEMOGLOBIN 4.3 % (0.0-5.0); BG FRACTION INSPIRED OXYGEN 40; BG HCO3 ACT 37.1 mmol/L (22.0-26.0); BG METHEMOGLOBIN 0.3 % (0.0-1.5); BG OXYGEN SATURATION 95.6 % (92.0-98.5); BG OXYHEMOGLOBIN 94.4 % (94.0-97.0); BG PH 7.455 (7.350-7.450); BG PO2 82.4 mmHg (75.0-100.0); BG SAMPLE SITE RIGHT RADIAL; BG TIDAL VOLUME(mL) 600 mL; BG TOTAL HEMOGLOBIN 16.4 g/dL (12.0-18.0); BG VENT MODE VENT - A/C; BG VENT RATE 16 set
[2018-05-26] MEDS: IPRATROPIUM/ALBUTEROL 0.5-3(2.5)MG/3ML NEB HHN SCH ×3 (08:47→20:08)
[2018-05-26] MEDS: RISPERIDONE 1MG TABLET PO SCH ×2 (09:14→20:58)
[2018-05-26] MEDS: DOCUSATE SODIUM SUGAR FREE 100MG/10ML UDC NG SCH (09:14)
[2018-05-26] MEDS: ENOXAPARIN 40MG/0.4ML SYR SUBCUT SCH (09:14)
[2018-05-26] MEDS: PANTOPRAZOLE SODIUM 40 MG/VIAL IV SCH (09:14)
[2018-05-26] MEDS ORDERED: BISACODYL 10MG SUPP PR PRN (10:45)
[2018-05-26] MEDS ORDERED: BISACODYL 10MG SUPP PR SCH (10:45)
[2018-05-26] MEDS: METHYLPREDNISOLONE SOD SUCC 40 MG/ML VIAL IV SCH ×2 (10:48→18:30)
[2018-05-26] MEDS ORDERED: KCL 20MEQ/100ML PREMIX 100 ML IV NR (12:30)
[2018-05-26] MEDS: METOCLOPRAMIDE HCL 10MG/2ML VIAL IV SCH ×2 (18:31→23:57)
[2018-05-27] VITALS (47 sets, daily range): BP systolic 95–139; BP diastolic 46–84
[2018-05-27] MEDS: PROPOFOL 10MG/ML 100ML 100 ML IV PRN ×8 (01:46→23:03)
[2018-05-27] MEDS: ACETYLCYSTEINE 100MG/ML 10% VIAL 4ML INH SCH ×2 (02:51→08:11)
[2018-05-27] MEDS: IPRATROPIUM/ALBUTEROL 0.5-3(2.5)MG/3ML NEB HHN SCH ×4 (02:52→20:12)
[2018-05-27] MEDS: PIPERACILLIN/TAZ 3.375G PREMIX 50 ML IV SCH ×4 (02:57→21:19)
[2018-05-27] MEDS: DILTIAZEM HCL 30MG TABLET NG SCH ×3 (06:11→19:11)
[2018-05-27] MEDS: METOCLOPRAMIDE HCL 10MG/2ML VIAL IV SCH ×3 (06:11→19:12)
[2018-05-27] MEDS: FUROSEMIDE 100MG/10ML VIAL IVP SCH ×2 (06:12→19:11)
[2018-05-27 06:24] LABS: HEMOGLOBIN. 15.5 g/dL (14.0-18.0); MEAN CORPUSCULAR HEMOGLOBIN 27.4 pg (28.0-32.0); MEAN CORPUSCULAR VOLUME 88.5 fL (80.0-94.0); MEAN PLATELET VOLUME 11.4 fl (7.4-10.4); PLATELET 211 x1000/uL (130-400); RED BLOOD CELL COUNT 5.65 mill/uL (4.7-6.1); RED CELL DISTRIBUTION WIDTH 16.5 % (11.6-14.6)
[2018-05-27 06:39] LABS: INR 1.2; PROTHROMBIN TIME 11.6 sec (9.1-11.1)
[2018-05-27 07:48] LABS: BG BASE EXCESS 10.4 mmol/L (-2.0-2.0); BG DEOXYHEMOGLOBIN 2.5 % (0.0-5.0); BG HCO3 ACT 36.6 mmol/L (22.0-26.0); BG METHEMOGLOBIN 0.4 % (0.0-1.5); BG OXYGEN SATURATION 97.5 % (92.0-98.5); BG OXYHEMOGLOBIN 96.1 % (94.0-97.0); BG PCO2 53.5 mmHg (35.0-45.0); BG PH 7.453 (7.350-7.450); BG PO2 96.9 mmHg (75.0-100.0); BG SAMPLE SITE RIGHT RADIAL; BG TIDAL VOLUME(mL) 600 mL; BG TOTAL HEMOGLOBIN 16.2 g/dL (12.0-18.0); BG VENT MODE VENT - A/C; BG VENT RATE 16 set
[2018-05-27] MEDS ORDERED: LORAZEPAM 2MG/ML CPJ IV PRN (08:15)
[2018-05-27] MEDS ORDERED: FENTANYL CITRATE/PF 50MCG/ML 2ML VIAL IV PRN (08:15)
[2018-05-27] MEDS: DOCUSATE SODIUM SUGAR FREE 100MG/10ML UDC NG SCH (09:00)
[2018-05-27 09:10] LABS: CHLORIDE 101 mEq/L (98-107)
[2018-05-27] MEDS: PANTOPRAZOLE SODIUM 40 MG/VIAL IV SCH (09:10)
[2018-05-27] MEDS: METHYLPREDNISOLONE SOD SUCC 40 MG/ML VIAL IV SCH (09:11)
[2018-05-27] MEDS: RISPERIDONE 1MG TABLET PO SCH ×2 (09:11→21:19)
[2018-05-27] MEDS ORDERED: POTASSIUM CHLORIDE INJ 40 MEQ in DEXT 5% WATER 250 ML IV SCH (12:00)
[2018-05-27 13:56] LABS: PLATELET ESTIMATE NORMAL
[2018-05-27] MEDS: DEXTROSE 5% WATER 1,000 ML IV SCH (21:11)
[2018-05-28] VITALS (45 sets, daily range): BP systolic 107–160; BP diastolic 54–99
[2018-05-28] MEDS: METOCLOPRAMIDE HCL 10MG/2ML VIAL IV SCH ×4 (00:55→18:27)
[2018-05-28] MEDS: IPRATROPIUM/ALBUTEROL 0.5-3(2.5)MG/3ML NEB HHN SCH ×4 (01:10→20:10)
[2018-05-28] MEDS: PROPOFOL 10MG/ML 100ML 100 ML IV PRN ×8 (01:38→22:35)
[2018-05-28] MEDS: FUROSEMIDE 100MG/10ML VIAL IVP SCH ×2 (06:00→18:27)
[2018-05-28 06:22] LABS: HEMATOCRIT. 47.7 % (42.0-52.0); MEAN CORPUSCULAR HEMOGLOBIN 27.6 pg (28.0-32.0); MEAN CORPUSCULAR VOLUME 87.5 fL (80.0-94.0); PLATELET 221 x1000/uL (130-400); RED BLOOD CELL COUNT 5.45 mill/uL (4.7-6.1); RED CELL DISTRIBUTION WIDTH 16.7 % (11.6-14.6)
[2018-05-28 06:23] LABS: CHLORIDE 100 mEq/L (98-107)
[2018-05-28] MEDS: DILTIAZEM HCL 30MG TABLET NG SCH ×5 (06:31→23:48)
[2018-05-28] MEDS: PANTOPRAZOLE SODIUM 40 MG/VIAL IV SCH ×2 (08:24→21:59)
[2018-05-28] MEDS: RISPERIDONE 1MG TABLET PO SCH ×2 (08:24→21:00)
[2018-05-28] MEDS: METHYLPREDNISOLONE SOD SUCC 40 MG/ML VIAL IV SCH (08:24)
[2018-05-28] MEDS: DOCUSATE SODIUM SUGAR FREE 100MG/10ML UDC NG SCH (08:25)
[2018-05-28 08:48] LABS: ATYPICAL LYMPHOCYTES 1; PLATELET ESTIMATE NORMAL
[2018-05-28 08:49] LABS: BG CARBOXYHEMOGLOBIN 0.9 % (0.5-1.5); BG DEOXYHEMOGLOBIN 2.8 % (0.0-5.0); BG FRACTION INSPIRED OXYGEN 100; BG HCO3 ACT 38.7 mmol/L (22.0-26.0); BG METHEMOGLOBIN 0.5 % (0.0-1.5); BG OXYGEN SATURATION 97.2 % (92.0-98.5); BG OXYHEMOGLOBIN 95.8 % (94.0-97.0); BG PCO2 56.4 mmHg (35.0-45.0); BG PH 7.454 (7.350-7.450); BG PO2 96.3 mmHg (75.0-100.0); BG SAMPLE SITE LEFT RADIAL; BG TIDAL VOLUME(mL) 600 mL; BG VENT MODE VENT - A/C; BG VENT RATE 16 set
[2018-05-28] MEDS ORDERED: PANTOPRAZOLE SODIUM 40 MG/VIAL IV SCH (09:00)
[2018-05-28] MEDS ORDERED: POTASSIUM CHLORIDE INJ 40 MEQ in DEXT 5% WATER 250 ML IV SCH (09:00)
[2018-05-28] MEDS ORDERED: POTASSIUM CHLORIDE INJ 40 MEQ in DEXT 5% WATER 250 ML IV ONE (10:00)
[2018-05-28] MEDS ORDERED: ACETAMINOPHEN 650MG SUPP PR PRN (11:30)
[2018-05-28 13:20] LABS: BG CARBOXYHEMOGLOBIN 0.7 % (0.5-1.5); BG DEOXYHEMOGLOBIN 4.8 % (0.0-5.0); BG FRACTION INSPIRED OXYGEN 60; BG HCO3 ACT 33.6 mmol/L (22.0-26.0); BG METHEMOGLOBIN 0.3 % (0.0-1.5); BG OXYGEN SATURATION 95.2 % (92.0-98.5); BG OXYHEMOGLOBIN 94.2 % (94.0-97.0); BG PCO2 49.2 mmHg (35.0-45.0); BG PH 7.452 (7.350-7.450); BG PO2 76.7 mmHg (75.0-100.0); BG SAMPLE SITE LEFT RADIAL; BG TIDAL VOLUME(mL) 600 mL; BG TOTAL HEMOGLOBIN 16.4 g/dL (12.0-18.0); BG VENT MODE VENT - A/C; BG VENT RATE 16 set
[2018-05-28 13:30] LABS: INR 1.1; PROTHROMBIN TIME 11.4 sec (9.1-11.1)
[2018-05-28] MEDS ORDERED: LEVETIRACETAM 500 MG in SODIUM CHLORIDE 0.9% 100 ML IV SCH ×2 (16:00→23:00)
[2018-05-28] MEDS ORDERED: BUPIVACAINE HCL/PF 0.5% (5MG/ML) 10ML ONE (16:46)
[2018-05-28] MEDS ORDERED: LIDOCAINE HCL/PF 1% 10 MG/ML 5ML VIAL ONE (16:46)
[2018-05-28] MEDS ORDERED: FENTANYL CITRATE/PF 50MCG/ML 2ML VIAL ONE ×2 (17:00→17:12)
[2018-05-28] MEDS ORDERED: VECURONIUM BROMIDE 10 MG/VIAL IV ONE (17:01)
[2018-05-28] MEDS ORDERED: SODIUM CHLORIDE 0.9% 10ML VIAL ONE (17:01)
[2018-05-28] MEDS ORDERED: MIDAZOLAM HCL 2 MG/2 ML VIAL ONE (17:13)
[2018-05-28] MEDS ORDERED: ROCURONIUM BROMIDE 10MG/ML VIAL 5ML IV ONE (17:29)
[2018-05-28] MEDS ORDERED: HYDROCODONE/ACETAMINOPHEN 5/325MG TABLET PO SCH (18:00)
[2018-05-29] VITALS (74 sets, daily range): BP systolic 90–127; BP diastolic 47–72
[2018-05-29] MEDS: METOCLOPRAMIDE HCL 10MG/2ML VIAL IV SCH ×4 (00:06→19:00)
[2018-05-29] MEDS: IPRATROPIUM/ALBUTEROL 0.5-3(2.5)MG/3ML NEB HHN SCH ×4 (01:56→21:13)
[2018-05-29] MEDS: PROPOFOL 10MG/ML 100ML 100 ML IV PRN ×5 (01:57→22:37)
[2018-05-29] MEDS: DEXTROSE 5% WATER 1,000 ML IV SCH (04:02)
[2018-05-29 05:06] LABS: HEMATOCRIT 48.8 % (42.0-52.0); HEMOGLOBIN 15.3 g/dL (14.0-18.0); MEAN CORPUSCULAR HEMOGLOBIN 27.6 pg (28.0-32.0); MEAN CORPUSCULAR VOLUME 87.9 fL (80.0-94.0); RED BLOOD CELL COUNT 5.56 mill/uL (4.7-6.1); RED CELL DISTRIBUTION WIDTH 16.4 % (11.6-14.6)
[2018-05-29 05:13] LABS: CHLORIDE 102 mEq/L (98-107)
[2018-05-29] MEDS: DILTIAZEM HCL 30MG TABLET NG SCH ×3 (05:39→19:01)
[2018-05-29] MEDS: FUROSEMIDE 100MG/10ML VIAL IVP SCH ×2 (06:37→19:00)
[2018-05-29 06:47] LABS: PLATELET 208 x1000/uL (130-400)
[2018-05-29] MEDS ORDERED: POTASSIUM CHLORIDE INJ 40 MEQ in DEXT 5% WATER 500 ML IV NR (07:00)
[2018-05-29] MEDS: DOCUSATE SODIUM SUGAR FREE 100MG/10ML UDC NG SCH (09:00)
[2018-05-29] MEDS: RISPERIDONE 1MG TABLET PO SCH ×2 (09:00→21:53)
[2018-05-29] MEDS: METHYLPREDNISOLONE SOD SUCC 40 MG/ML VIAL IV SCH (09:27)
[2018-05-29] MEDS: PANTOPRAZOLE SODIUM 40 MG/VIAL IV SCH ×2 (09:27→21:53)
[2018-05-29] MEDS ORDERED: CEFAZOLIN 1000MG PREMIX 50 ML IV NR (10:00)
[2018-05-29] MEDS ORDERED: POTASSIUM CHLORIDE INJ 40 MEQ in DEXT 5% WATER 250 ML IV NR ×2 (10:00→14:30)
[2018-05-29 10:25] LABS: BG BASE EXCESS 11.3 mmol/L (-2.0-2.0); BG CARBOXYHEMOGLOBIN 1.1 % (0.5-1.5); BG DEOXYHEMOGLOBIN 4.8 % (0.0-5.0); BG FRACTION INSPIRED OXYGEN 60; BG HCO3 ACT 37.3 mmol/L (22.0-26.0); BG METHEMOGLOBIN 0.4 % (0.0-1.5); BG OXYGEN SATURATION 95.1 % (92.0-98.5); BG OXYHEMOGLOBIN 93.7 % (94.0-97.0); BG PCO2 52.6 mmHg (35.0-45.0); BG PH 7.469 (7.350-7.450); BG PO2 76.5 mmHg (75.0-100.0); BG SAMPLE SITE LEFT RADIAL; BG TIDAL VOLUME(mL) 600 mL; BG TOTAL HEMOGLOBIN 16.2 g/dL (12.0-18.0); BG VENT MODE VENT - A/C; BG VENT RATE 16 set
[2018-05-29] MEDS: LEVETIRACETAM 500 MG in SODIUM CHLORIDE 0.9% 100 ML IV SCH ×2 (12:31→21:53)
[2018-05-29] MEDS ORDERED: MIDAZOLAM HCL 5 MG/5 ML VIAL ONE (15:13)
[2018-05-29] MEDS ORDERED: FENTANYL CITRATE/PF 50MCG/ML 2ML VIAL ONE (15:14)
[2018-05-29] MEDS: HYDROMORPHONE HCL/PF 2MG/ML CPJ IV SCH (19:57)
[2018-05-30] VITALS (93 sets, daily range): BP systolic 96–138; BP diastolic 54–85
[2018-05-30] MEDS: HYDROMORPHONE HCL/PF 2MG/ML CPJ IV SCH ×2 (01:31→06:49)
[2018-05-30] MEDS: ACETAMINOPHEN 325MG TABLET PO PRN ×2 (01:32→23:48)
[2018-05-30] MEDS: METOCLOPRAMIDE HCL 10MG/2ML VIAL IV SCH ×5 (01:39→23:19)
[2018-05-30] MEDS: DILTIAZEM HCL 30MG TABLET NG SCH ×6 (01:40→23:20)
[2018-05-30] MEDS: IPRATROPIUM/ALBUTEROL 0.5-3(2.5)MG/3ML NEB HHN SCH ×4 (01:44→19:54)
[2018-05-30] MEDS: ACETYLCYSTEINE 100MG/ML 10% VIAL 4ML INH SCH ×3 (01:44→13:53)
[2018-05-30] MEDS: PROPOFOL 10MG/ML 100ML 100 ML IV PRN ×2 (02:25→06:17)
[2018-05-30 05:53] LABS: CHLORIDE 105 mEq/L (98-107)
[2018-05-30 05:54] LABS: BASOPHILS % 0.4 % (0.0-2.0); EOSINOPHILS % 1.1 % (0.0-5.0); HEMATOCRIT. 49.5 % (42.0-52.0); HEMOGLOBIN. 15.4 g/dL (14.0-18.0); LYMPHOCYTES % 14.1 % (20.0-50.0); MEAN CORPUSCULAR HEMOGLOBIN 27.4 pg (28.0-32.0); MEAN PLATELET VOLUME 12.1 fl (7.4-10.4); MONOCYTES % 13.2 % (2.0-8.0); NEUTROPHILS % 71.2 % (40.0-76.0); PLATELET 222 x1000/uL (130-400); RED BLOOD CELL COUNT 5.62 mill/uL (4.7-6.1); RED CELL DISTRIBUTION WIDTH 16.5 % (11.6-14.6)
[2018-05-30] MEDS: FUROSEMIDE 100MG/10ML VIAL IVP SCH ×2 (06:49→17:45)
[2018-05-30] MEDS: DOCUSATE SODIUM SUGAR FREE 100MG/10ML UDC NG SCH (08:17)
[2018-05-30] MEDS: RISPERIDONE 1MG TABLET PO SCH ×2 (08:17→21:18)
[2018-05-30] MEDS: PANTOPRAZOLE SODIUM 40 MG/VIAL IV SCH ×2 (08:17→21:18)
[2018-05-30] MEDS: PREDNISONE 20MG TABLET PO SCH (08:17)
[2018-05-30] MEDS: LEVETIRACETAM 500 MG in SODIUM CHLORIDE 0.9% 100 ML IV SCH ×2 (08:18→21:18)
[2018-05-30] MEDS: LORAZEPAM 2MG/ML CPJ IV PRN ×3 (08:18→21:19)
[2018-05-30 08:23] LABS: BG BASE EXCESS 9.8 mmol/L (-2.0-2.0); BG CARBOXYHEMOGLOBIN 0.9 % (0.5-1.5); BG DEOXYHEMOGLOBIN 5.3 % (0.0-5.0); BG FRACTION INSPIRED OXYGEN 80; BG HCO3 ACT 36.5 mmol/L (22.0-26.0); BG METHEMOGLOBIN 0.1 % (0.0-1.5); BG OXYGEN SATURATION 94.6 % (92.0-98.5); BG OXYHEMOGLOBIN 93.7 % (94.0-97.0); BG PCO2 56.1 mmHg (35.0-45.0); BG PH 7.431 (7.350-7.450); BG PO2 74.3 mmHg (75.0-100.0); BG SAMPLE SITE LEFT RADIAL; BG TIDAL VOLUME(mL) 600 mL; BG TOTAL HEMOGLOBIN 16.3 g/dL (12.0-18.0); BG VENT MODE VENT - A/C; BG VENT RATE 16 set
[2018-05-30] MEDS ORDERED: POTASSIUM CHLORIDE INJ 40 MEQ in DEXT 5% WATER 250 ML IV NR (10:00)
[2018-05-30] MEDS: HYDROMORPHONE HCL/PF 2MG/ML CPJ IV PRN (12:45)
[2018-05-30] MEDS: DEXTROSE 5% WATER 1,000 ML IV SCH (12:47)
[2018-05-30] MEDS: POTASSIUM CHLORIDE 20MEQ/PACKET PO SCH (17:45)
[2018-05-30] MEDS: ENOXAPARIN 40MG/0.4ML SYR SUBCUT SCH (23:21)
[2018-05-31] VITALS (71 sets, daily range): BP systolic 95–130; BP diastolic 35–83
[2018-05-31] MEDS: IPRATROPIUM/ALBUTEROL 0.5-3(2.5)MG/3ML NEB HHN SCH ×4 (02:19→20:06)
[2018-05-31] MEDS: ACETYLCYSTEINE 100MG/ML 10% VIAL 4ML INH SCH ×3 (02:19→13:26)
[2018-05-31] MEDS: DEXTROSE 5% WATER 1,000 ML IV SCH (03:31)
[2018-05-31] MEDS: LORAZEPAM 2MG/ML CPJ IV PRN ×2 (05:23→13:25)
[2018-05-31 05:53] LABS: BASOPHILS % 0.5 % (0.0-2.0); EOSINOPHILS % 0.7 % (0.0-5.0); HEMATOCRIT. 49.9 % (42.0-52.0); HEMOGLOBIN. 15.4 g/dL (14.0-18.0); LYMPHOCYTES % 10.4 % (20.0-50.0); MEAN CORPUSCULAR HEMOGLOBIN 27.2 pg (28.0-32.0); MEAN CORPUSCULAR VOLUME 88.3 fL (80.0-94.0); MEAN PLATELET VOLUME 12.5 fl (7.4-10.4); MONOCYTES % 13.6 % (2.0-8.0); NEUTROPHILS % 74.8 % (40.0-76.0); PLATELET 251 x1000/uL (130-400); RED BLOOD CELL COUNT 5.65 mill/uL (4.7-6.1); RED CELL DISTRIBUTION WIDTH 16.8 % (11.6-14.6)
[2018-05-31 06:05] LABS: CHLORIDE 105 mEq/L (98-107)
[2018-05-31] MEDS: METOCLOPRAMIDE HCL 10MG/2ML VIAL IV SCH ×3 (06:43→17:28)
[2018-05-31] MEDS: FUROSEMIDE 100MG/10ML VIAL IVP SCH ×2 (06:43→17:28)
[2018-05-31] MEDS: DILTIAZEM HCL 30MG TABLET NG SCH ×3 (06:43→17:46)
[2018-05-31] MEDS ORDERED: KCL 20MEQ/100ML PREMIX 100 ML IV NR (08:00)
[2018-05-31] MEDS: PANTOPRAZOLE SODIUM 40 MG/VIAL IV SCH ×2 (08:29→21:11)
[2018-05-31] MEDS: DOCUSATE SODIUM SUGAR FREE 100MG/10ML UDC NG SCH (08:30)
[2018-05-31] MEDS: ENOXAPARIN 40MG/0.4ML SYR SUBCUT SCH ×2 (08:30→21:12)
[2018-05-31] MEDS: PREDNISONE 20MG TABLET PO SCH (08:30)
[2018-05-31] MEDS: RISPERIDONE 1MG TABLET PO SCH ×2 (08:30→21:11)
[2018-05-31] MEDS: POTASSIUM CHLORIDE 20MEQ/PACKET PO SCH ×2 (08:30→17:28)
[2018-05-31 08:33] LABS: CLARITY URINE CLEAR (CLEAR); COLOR URINE YELLOW (YELLOW); KETONES URINE NEGATIVE (NEGATIVE); LEUKOCYTE ESTERASE URINE NEGATIVE (NEGATIVE); NITRITE URINE NEGATIVE (NEGATIVE); OCCULT BLOOD URINE NEGATIVE (NEGATIVE); PROTEIN URINE NEGATIVE (NEGATIVE); UROBILINOGEN URINE >=8.0 E.U./dL (0.2-1.0)
[2018-05-31 09:14] LABS: BG BASE EXCESS 9.6 mmol/L (-2.0-2.0); BG CARBOXYHEMOGLOBIN 1.5 % (0.5-1.5); BG DEOXYHEMOGLOBIN 3.7 % (0.0-5.0); BG FRACTION INSPIRED OXYGEN 80; BG HCO3 ACT 35.1 mmol/L (22.0-26.0); BG METHEMOGLOBIN 0.2 % (0.0-1.5); BG OXYGEN SATURATION 96.2 % (92.0-98.5); BG OXYHEMOGLOBIN 94.6 % (94.0-97.0); BG PCO2 49.8 mmHg (35.0-45.0); BG PH 7.466 (7.350-7.450); BG PO2 80.8 mmHg (75.0-100.0); BG SAMPLE SITE RIGHT RADIAL; BG TIDAL VOLUME(mL) 600 mL; BG VENT MODE VENT - A/C; BG VENT RATE 16 set
[2018-05-31] MEDS: LEVETIRACETAM 500 MG in SODIUM CHLORIDE 0.9% 100 ML IV SCH ×2 (09:38→21:11)
[2018-05-31] MEDS: HYDROMORPHONE HCL/PF 2MG/ML CPJ IV PRN (09:39)
[2018-05-31] MEDS: PIPERACILLIN/TAZ 3.375G PREMIX 50 ML IV SCH ×2 (12:11→17:28)
[2018-05-31] MEDS: LACTULOSE 20G/30ML UDC PO SCH ×2 (13:16→21:11)
[2018-05-31] MEDS ORDERED: VANCOMYCIN 2,000 MG in DEXT 5% WATER 500 ML IV SCH (14:00)
[2018-05-31] MEDS: ACETAMINOPHEN 325MG TABLET PO PRN ×2 (16:37→20:06)
[2018-05-31] MEDS: VANCOMYCIN 1500MG in DEXTROSE 5% WATER 250ML IV SCH (21:12)
[2018-06-01] VITALS (12 sets, daily range): BP systolic 109–153; BP diastolic 57–79
[2018-06-01] MEDS: DILTIAZEM HCL 30MG TABLET NG SCH ×5 (01:01→23:27)
[2018-06-01] MEDS: METOCLOPRAMIDE HCL 10MG/2ML VIAL IV SCH ×5 (01:01→23:27)
[2018-06-01] MEDS: PIPERACILLIN/TAZ 3.375G PREMIX 50 ML IV SCH ×5 (01:01→23:26)
[2018-06-01] MEDS: ACETAMINOPHEN 325MG TABLET PO PRN ×2 (01:30→22:28)
[2018-06-01] MEDS: ACETYLCYSTEINE 100MG/ML 10% VIAL 4ML INH SCH (01:50)
[2018-06-01] MEDS: IPRATROPIUM/ALBUTEROL 0.5-3(2.5)MG/3ML NEB HHN SCH ×4 (01:51→20:04)
[2018-06-01] MEDS: VANCOMYCIN 1500MG in DEXTROSE 5% WATER 250ML IV SCH (06:08)
[2018-06-01] MEDS: LACTULOSE 20G/30ML UDC PO SCH ×3 (06:08→21:58)
[2018-06-01] MEDS: FUROSEMIDE 100MG/10ML VIAL IVP SCH ×2 (06:08→17:49)
[2018-06-01] MEDS: LEVETIRACETAM 500 MG in SODIUM CHLORIDE 0.9% 100 ML IV SCH ×2 (08:54→21:59)
[2018-06-01] MEDS: DOCUSATE SODIUM SUGAR FREE 100MG/10ML UDC NG SCH (08:54)
[2018-06-01] MEDS: PANTOPRAZOLE SODIUM 40 MG/VIAL IV SCH ×2 (08:55→21:58)
[2018-06-01] MEDS: POTASSIUM CHLORIDE 20MEQ/PACKET PO SCH ×2 (08:55→17:52)
[2018-06-01] MEDS: ENOXAPARIN 40MG/0.4ML SYR SUBCUT SCH ×2 (08:55→21:58)
[2018-06-01] MEDS: RISPERIDONE 1MG TABLET PO SCH ×2 (08:56→21:58)
[2018-06-01] MEDS: LORAZEPAM 2MG/ML CPJ IV PRN ×2 (08:57→15:11)
[2018-06-01] MEDS: PREDNISONE 20MG TABLET PO SCH (09:07)
[2018-06-01 09:59] LABS: BASOPHILS % 0.6 % (0.0-2.0); EOSINOPHILS % 0.9 % (0.0-5.0); HEMATOCRIT. 50.1 % (42.0-52.0); HEMOGLOBIN. 15.2 g/dL (14.0-18.0); LYMPHOCYTES % 7.2 % (20.0-50.0); MEAN CORPUSCULAR HEMOGLOBIN 26.9 pg (28.0-32.0); MEAN CORPUSCULAR VOLUME 88.2 fL (80.0-94.0); MONOCYTES % 14.7 % (2.0-8.0); NEUTROPHILS % 76.6 % (40.0-76.0); RED BLOOD CELL COUNT 5.68 mill/uL (4.7-6.1)
[2018-06-01 10:08] LABS: CHLORIDE 105 mEq/L (98-107)
[2018-06-01] MEDS ORDERED: POTASSIUM CHLORIDE 20MEQ TABLET SR PO SCH (10:45)
[2018-06-01 12:30] LABS: PLATELET 293 x1000/uL (130-400)
[2018-06-01] MEDS: HYDROMORPHONE HCL/PF 2MG/ML CPJ IV PRN ×2 (13:11→17:51)
[2018-06-01 18:05] LABS: BG BASE EXCESS 8.6 mmol/L (-2.0-2.0); BG CARBOXYHEMOGLOBIN 1.1 % (0.5-1.5); BG DEOXYHEMOGLOBIN 5.7 % (0.0-5.0); BG FRACTION INSPIRED OXYGEN 70; BG HCO3 ACT 34.4 mmol/L (22.0-26.0); BG METHEMOGLOBIN 0.5 % (0.0-1.5); BG OXYGEN SATURATION 94.2 % (92.0-98.5); BG OXYHEMOGLOBIN 92.7 % (94.0-97.0); BG PCO2 50.5 mmHg (35.0-45.0); BG PH 7.451 (7.350-7.450); BG SAMPLE SITE LEFT RADIAL; BG TIDAL VOLUME(mL) 600 mL; BG TOTAL HEMOGLOBIN 16.3 g/dL (12.0-18.0); BG VENT MODE VENT - A/C; BG VENT RATE 16 set
[2018-06-01] MEDS: VANCOMYCIN 2,000 MG in DEXT 5% WATER 500 ML IV SCH (18:57)
[2018-06-02] VITALS (12 sets, daily range): BP systolic 99–129; BP diastolic 55–86
[2018-06-02] MEDS: ACETYLCYSTEINE 100MG/ML 10% VIAL 4ML INH SCH ×2 (00:18→00:56)
[2018-06-02] MEDS: IPRATROPIUM/ALBUTEROL 0.5-3(2.5)MG/3ML NEB HHN SCH ×2 (00:18→20:27)
[2018-06-02] MEDS: LORAZEPAM 2MG/ML CPJ IV PRN (03:26)
[2018-06-02] MEDS: VANCOMYCIN 2,000 MG in DEXT 5% WATER 500 ML IV SCH ×2 (05:28→18:42)
[2018-06-02] MEDS: HYDROMORPHONE HCL/PF 2MG/ML CPJ IV PRN ×3 (05:29→22:26)
[2018-06-02] MEDS: LACTULOSE 20G/30ML UDC PO SCH ×3 (05:29→21:56)
[2018-06-02] MEDS: DILTIAZEM HCL 30MG TABLET NG SCH ×3 (05:31→18:00)
[2018-06-02] MEDS: ACETAMINOPHEN 325MG TABLET PO PRN ×3 (05:31→22:04)
[2018-06-02] MEDS: METOCLOPRAMIDE HCL 10MG/2ML VIAL IV SCH ×3 (05:32→17:38)
[2018-06-02 06:44] LABS: HEMATOCRIT. 47.5 % (42.0-52.0); HEMOGLOBIN. 14.5 g/dL (14.0-18.0); MEAN CORPUSCULAR HEMOGLOBIN 27.1 pg (28.0-32.0); MEAN CORPUSCULAR VOLUME 88.3 fL (80.0-94.0); MEAN PLATELET VOLUME 12.5 fl (7.4-10.4); PLATELET 324 x1000/uL (130-400); RED BLOOD CELL COUNT 5.37 mill/uL (4.7-6.1)
[2018-06-02] MEDS: FUROSEMIDE 100MG/10ML VIAL IVP SCH (06:55)
[2018-06-02] MEDS: PIPERACILLIN/TAZ 3.375G PREMIX 50 ML IV SCH ×3 (06:55→17:39)
[2018-06-02 07:23] LABS: CHLORIDE 108 mEq/L (98-107)
[2018-06-02] MEDS: RISPERIDONE 1MG TABLET PO SCH ×2 (09:31→22:03)
[2018-06-02] MEDS: PREDNISONE 20MG TABLET PO SCH (09:31)
[2018-06-02] MEDS: POTASSIUM CHLORIDE 20MEQ/PACKET PO SCH ×2 (09:33→17:38)
[2018-06-02] MEDS: PANTOPRAZOLE SODIUM 40 MG/VIAL IV SCH ×2 (09:33→21:56)
[2018-06-02] MEDS: LEVETIRACETAM 500 MG in SODIUM CHLORIDE 0.9% 100 ML IV SCH ×2 (09:33→21:56)
[2018-06-02] MEDS: ENOXAPARIN 40MG/0.4ML SYR SUBCUT SCH ×2 (09:34→21:55)
[2018-06-02] MEDS: DOCUSATE SODIUM SUGAR FREE 100MG/10ML UDC NG SCH (10:15)
[2018-06-02 10:18] LABS: PLATELET ESTIMATE NORMAL
[2018-06-02] MEDS: METOPROLOL TARTRATE 50MG TABLET PO SCH ×2 (11:16→22:02)
[2018-06-02 15:23] LABS: BG BASE EXCESS 8.4 mmol/L (-2.0-2.0); BG CARBOXYHEMOGLOBIN 0.8 % (0.5-1.5); BG DEOXYHEMOGLOBIN 5.5 % (0.0-5.0); BG HCO3 ACT 33.3 mmol/L (22.0-26.0); BG METHEMOGLOBIN 0.3 % (0.0-1.5); BG OXYGEN SATURATION 94.4 % (92.0-98.5); BG OXYHEMOGLOBIN 93.4 % (94.0-97.0); BG PCO2 46.4 mmHg (35.0-45.0); BG PH 7.474 (7.350-7.450); BG PO2 71.2 mmHg (75.0-100.0); BG SAMPLE SITE RIGHT RADIAL; BG TIDAL VOLUME(mL) 600 mL; BG TOTAL HEMOGLOBIN 15.8 g/dL (12.0-18.0); BG VENT MODE VENT - A/C; BG VENT RATE 16 set
[2018-06-03] VITALS (19 sets, daily range): BP systolic 102–149; BP diastolic 60–78
[2018-06-03] MEDS: PIPERACILLIN/TAZ 3.375G PREMIX 50 ML IV SCH ×4 (01:02→18:48)
[2018-06-03] MEDS: DILTIAZEM HCL 30MG TABLET NG SCH ×4 (01:02→18:00)
[2018-06-03] MEDS: METOCLOPRAMIDE HCL 10MG/2ML VIAL IV SCH ×4 (01:03→17:54)
[2018-06-03] MEDS: ACETAMINOPHEN 325MG TABLET PO PRN ×2 (03:22→17:14)
[2018-06-03] MEDS: HYDROMORPHONE HCL/PF 2MG/ML CPJ IV PRN ×2 (03:50→08:54)
[2018-06-03 06:00] LABS: HEMATOCRIT. 47.9 % (42.0-52.0); HEMOGLOBIN. 14.6 g/dL (14.0-18.0); MEAN CORPUSCULAR HEMOGLOBIN 26.9 pg (28.0-32.0); MEAN CORPUSCULAR VOLUME 88.2 fL (80.0-94.0); MEAN PLATELET VOLUME 12.8 fl (7.4-10.4); PLATELET 329 x1000/uL (130-400); RED BLOOD CELL COUNT 5.43 mill/uL (4.7-6.1); RED CELL DISTRIBUTION WIDTH 16.9 % (11.6-14.6)
[2018-06-03 06:03] LABS: CHLORIDE 110 mEq/L (98-107)
[2018-06-03] MEDS: VANCOMYCIN 2,000 MG in DEXT 5% WATER 500 ML IV SCH (06:22)
[2018-06-03] MEDS: LACTULOSE 20G/30ML UDC PO SCH ×3 (06:25→22:00)
[2018-06-03] MEDS: LORAZEPAM 2MG/ML CPJ IV PRN (08:52)
[2018-06-03] MEDS: POTASSIUM CHLORIDE 20MEQ/PACKET PO SCH ×2 (09:00→09:43)
[2018-06-03] MEDS: DOCUSATE SODIUM SUGAR FREE 100MG/10ML UDC NG SCH (09:43)
[2018-06-03] MEDS: METOPROLOL TARTRATE 50MG TABLET PO SCH ×2 (09:44→21:00)
[2018-06-03] MEDS: PREDNISONE 20MG TABLET PO SCH (09:44)
[2018-06-03] MEDS: ENOXAPARIN 40MG/0.4ML SYR SUBCUT SCH ×2 (09:44→21:00)
[2018-06-03] MEDS: LEVETIRACETAM 500 MG in SODIUM CHLORIDE 0.9% 100 ML IV SCH ×2 (09:50→21:00)
[2018-06-03] MEDS: FUROSEMIDE 100MG/10ML VIAL IVP SCH (09:50)
[2018-06-03] MEDS: PANTOPRAZOLE SODIUM 40 MG/VIAL IV SCH ×2 (10:24→21:00)
[2018-06-03] MEDS: RISPERIDONE 1MG TABLET PO SCH ×2 (10:24→21:00)
[2018-06-03] MEDS ORDERED: POTASSIUM CHLORIDE 20MEQ TABLET SR PO NR ×2 (10:45→15:00)
[2018-06-03 12:23] LABS: PLATELET ESTIMATE NORMAL
[2018-06-03] MEDS: SPIRONOLACTONE 25MG TABLET PO SCH (14:21)
[2018-06-03] MEDS: VANCOMYCIN 1250MG in DEXTROSE 5% WATER 250ML IV SCH (17:01)
[2018-06-03] MEDS: IPRATROPIUM/ALBUTEROL 0.5-3(2.5)MG/3ML NEB HHN SCH (20:27)
[2018-06-04] VITALS (8 sets, daily range): BP systolic 104–140; BP diastolic 56–93
[2018-06-04] MEDS: IPRATROPIUM/ALBUTEROL 0.5-3(2.5)MG/3ML NEB HHN SCH ×4 (01:51→20:42)
[2018-06-04] MEDS: ACETYLCYSTEINE 100MG/ML 10% VIAL 4ML INH SCH ×2 (01:52→08:00)
[2018-06-04] MEDS: ACETAMINOPHEN 325MG TABLET PO PRN ×3 (04:50→23:28)
[2018-06-04] MEDS: LACTULOSE 20G/30ML UDC PO SCH (06:41)
[2018-06-04] MEDS: PIPERACILLIN/TAZ 3.375G PREMIX 50 ML IV SCH ×5 (06:41→23:20)
[2018-06-04] MEDS: DILTIAZEM HCL 30MG TABLET NG SCH ×5 (06:42→23:20)
[2018-06-04] MEDS: METOCLOPRAMIDE HCL 10MG/2ML VIAL IV SCH ×5 (06:42→23:20)
[2018-06-04 07:13] LABS: CHLORIDE 113 mEq/L (98-107)
[2018-06-04 07:17] LABS: HEMATOCRIT. 49.9 % (42.0-52.0); HEMOGLOBIN. 14.9 g/dL (14.0-18.0); MEAN CORPUSCULAR HEMOGLOBIN 26.8 pg (28.0-32.0); MEAN CORPUSCULAR VOLUME 89.7 fL (80.0-94.0); RED BLOOD CELL COUNT 5.57 mill/uL (4.7-6.1); RED CELL DISTRIBUTION WIDTH 17.7 % (11.6-14.6)
[2018-06-04] MEDS: PANTOPRAZOLE SODIUM 40 MG/VIAL IV SCH ×2 (09:27→20:57)
[2018-06-04] MEDS: LEVETIRACETAM 500 MG in SODIUM CHLORIDE 0.9% 100 ML IV SCH ×2 (09:27→20:57)
[2018-06-04] MEDS: DOCUSATE SODIUM SUGAR FREE 100MG/10ML UDC NG SCH (09:28)
[2018-06-04] MEDS: FUROSEMIDE 100MG/10ML VIAL IVP SCH (09:28)
[2018-06-04] MEDS: ENOXAPARIN 40MG/0.4ML SYR SUBCUT SCH ×2 (09:28→20:58)
[2018-06-04] MEDS: METOPROLOL TARTRATE 50MG TABLET PO SCH ×2 (09:29→20:58)
[2018-06-04] MEDS: SPIRONOLACTONE 25MG TABLET PO SCH (09:29)
[2018-06-04] MEDS: RISPERIDONE 1MG TABLET PO SCH ×2 (09:30→20:58)
[2018-06-04 10:21] LABS: PLATELET 379 x1000/uL (130-400)
[2018-06-04 10:24] LABS: PLATELET ESTIMATE NORMAL
[2018-06-04] MEDS: HYDROMORPHONE HCL/PF 2MG/ML CPJ IV PRN (10:53)
[2018-06-04 10:54] LABS: BG BASE EXCESS 8.8 mmol/L (-2.0-2.0); BG CARBOXYHEMOGLOBIN 1.1 % (0.5-1.5); BG DEOXYHEMOGLOBIN 1.3 % (0.0-5.0); BG FRACTION INSPIRED OXYGEN 70; BG HCO3 ACT 33.3 mmol/L (22.0-26.0); BG METHEMOGLOBIN 0.7 % (0.0-1.5); BG OXYGEN SATURATION 98.7 % (92.0-98.5); BG OXYHEMOGLOBIN 96.9 % (94.0-97.0); BG PCO2 44.3 mmHg (35.0-45.0); BG PH 7.494 (7.350-7.450); BG PO2 115.4 mmHg (75.0-100.0); BG SAMPLE SITE RIGHT RADIAL; BG TIDAL VOLUME(mL) 600 mL; BG VENT MODE VENT - A/C; BG VENT RATE 16 set
[2018-06-04] MEDS: VANCOMYCIN 1250MG in DEXTROSE 5% WATER 250ML IV SCH ×5 (10:54→23:21)
[2018-06-04] MEDS: POTASSIUM CHLORIDE 20MEQ/PACKET PO SCH (17:43)
[2018-06-04 18:28] LABS: CLARITY URINE CLOUDY (CLEAR); COLOR URINE DARK YELLOW (YELLOW); KETONES URINE TRACE (NEGATIVE); LEUKOCYTE ESTERASE URINE 1+ (NEGATIVE); NITRITE URINE POSITIVE (NEGATIVE); OCCULT BLOOD URINE NEGATIVE (NEGATIVE); PROTEIN URINE TRACE (NEGATIVE); SPECIFIC GRAVITY URINE 1.033 (1.005-1.030)
[2018-06-05] VITALS (18 sets, daily range): BP systolic 90–129; BP diastolic 52–77
[2018-06-05] MEDS: IPRATROPIUM/ALBUTEROL 0.5-3(2.5)MG/3ML NEB HHN SCH ×4 (01:24→20:06)
[2018-06-05] MEDS: ACETYLCYSTEINE 100MG/ML 10% VIAL 4ML INH SCH ×3 (01:24→13:56)
[2018-06-05] MEDS: DILTIAZEM HCL 30MG TABLET NG SCH ×3 (05:01→17:57)
[2018-06-05] MEDS: METOCLOPRAMIDE HCL 10MG/2ML VIAL IV SCH ×3 (05:01→17:57)
[2018-06-05] MEDS: PIPERACILLIN/TAZ 3.375G PREMIX 50 ML IV SCH ×3 (05:02→17:57)
[2018-06-05] MEDS: ACETAMINOPHEN 325MG TABLET PO PRN ×2 (05:47→21:50)
[2018-06-05] MEDS: RISPERIDONE 1MG TABLET PO SCH ×2 (09:33→21:51)
[2018-06-05] MEDS: SPIRONOLACTONE 25MG TABLET PO SCH (09:35)
[2018-06-05] MEDS: METOPROLOL TARTRATE 50MG TABLET PO SCH ×2 (09:35→21:51)
[2018-06-05] MEDS: DOCUSATE SODIUM SUGAR FREE 100MG/10ML UDC NG SCH (09:38)
[2018-06-05] MEDS: POTASSIUM CHLORIDE 20MEQ/PACKET PO SCH ×2 (09:38→17:57)
[2018-06-05] MEDS: PANTOPRAZOLE SODIUM 40 MG/VIAL IV SCH ×2 (09:53→21:50)
[2018-06-05] MEDS: FUROSEMIDE 100MG/10ML VIAL IVP SCH (09:54)
[2018-06-05] MEDS: ENOXAPARIN 40MG/0.4ML SYR SUBCUT SCH ×2 (09:54→21:50)
[2018-06-05] MEDS ORDERED: VANCOMYCIN 1500MG in DEXTROSE 5% WATER 250ML IV SCH (12:00)
[2018-06-05] MEDS: VANCOMYCIN 2,000 MG in DEXT 5% WATER 500 ML IV SCH (13:14)
[2018-06-05 13:42] LABS: CHLORIDE 115 mEq/L (98-107)
[2018-06-05 21:35] LABS: HEMATOCRIT. 48.2 % (42.0-52.0); HEMOGLOBIN. 14.3 g/dL (14.0-18.0); MEAN CORPUSCULAR HEMOGLOBIN 26.6 pg (28.0-32.0); MEAN CORPUSCULAR VOLUME 89.6 fL (80.0-94.0); MEAN PLATELET VOLUME 13.2 fl (7.4-10.4); PLATELET 285 x1000/uL (130-400); RED BLOOD CELL COUNT 5.38 mill/uL (4.7-6.1); RED CELL DISTRIBUTION WIDTH 17.7 % (11.6-14.6)
[2018-06-05] MEDS: LEVETIRACETAM 500MG/5ML CUP PO SCH (21:50)
[2018-06-05 22:37] LABS: PLATELET ESTIMATE NORMAL
[2018-06-06] VITALS (17 sets, daily range): BP systolic 97–131; BP diastolic 48–77
[2018-06-06] MEDS: PIPERACILLIN/TAZ 3.375G PREMIX 50 ML IV SCH ×3 (01:08→11:20)
[2018-06-06] MEDS: METOCLOPRAMIDE HCL 10MG/2ML VIAL IV SCH ×4 (01:08→17:31)
[2018-06-06] MEDS: DILTIAZEM HCL 30MG TABLET NG SCH ×4 (01:08→17:33)
[2018-06-06] MEDS: VANCOMYCIN 2,000 MG in DEXT 5% WATER 500 ML IV SCH ×3 (01:09→22:51)
[2018-06-06] MEDS: IPRATROPIUM/ALBUTEROL 0.5-3(2.5)MG/3ML NEB HHN SCH ×2 (02:11→20:29)
[2018-06-06] MEDS: ACETYLCYSTEINE 100MG/ML 10% VIAL 4ML INH SCH ×2 (02:12→14:00)
[2018-06-06 05:07] LABS: BG BASE EXCESS 9.6 mmol/L (-2.0-2.0); BG CARBOXYHEMOGLOBIN 0.6 % (0.5-1.5); BG DEOXYHEMOGLOBIN 4.7 % (0.0-5.0); BG FRACTION INSPIRED OXYGEN 100; BG HCO3 ACT 34.9 mmol/L (22.0-26.0); BG METHEMOGLOBIN 0.8 % (0.0-1.5); BG OXYGEN SATURATION 95.2 % (92.0-98.5); BG OXYHEMOGLOBIN 93.9 % (94.0-97.0); BG PCO2 48.5 mmHg (35.0-45.0); BG PH 7.475 (7.350-7.450); BG PO2 75.7 mmHg (75.0-100.0); BG SAMPLE SITE LEFT BRACHIAL; BG TIDAL VOLUME(mL) 600 mL; BG TOTAL HEMOGLOBIN 16.5 g/dL (12.0-18.0); BG VENT MODE VENT - A/C; BG VENT RATE 16 set
[2018-06-06 08:28] LABS: BASOPHILS % 0.4 % (0.0-2.0); EOSINOPHILS % 2.3 % (0.0-5.0); HEMATOCRIT. 50.7 % (42.0-52.0); HEMOGLOBIN. 15.3 g/dL (14.0-18.0); MEAN CORPUSCULAR HEMOGLOBIN 26.8 pg (28.0-32.0); MEAN PLATELET VOLUME 12.9 fl (7.4-10.4); MONOCYTES % 12.1 % (2.0-8.0); NEUTROPHILS % 75.2 % (40.0-76.0); PLATELET 278 x1000/uL (130-400); RED BLOOD CELL COUNT 5.69 mill/uL (4.7-6.1); RED CELL DISTRIBUTION WIDTH 17.9 % (11.6-14.6)
[2018-06-06] MEDS: RISPERIDONE 1MG TABLET PO SCH ×2 (08:55→21:47)
[2018-06-06] MEDS: METOPROLOL TARTRATE 50MG TABLET PO SCH ×2 (08:56→21:44)
[2018-06-06] MEDS: SPIRONOLACTONE 25MG TABLET PO SCH (08:57)
[2018-06-06] MEDS: DOCUSATE SODIUM SUGAR FREE 100MG/10ML UDC NG SCH (09:00)
[2018-06-06] MEDS: POTASSIUM CHLORIDE 20MEQ/PACKET PO SCH ×2 (09:00→17:31)
[2018-06-06] MEDS: PANTOPRAZOLE SODIUM 40 MG/VIAL IV SCH ×2 (09:00→21:47)
[2018-06-06] MEDS: LEVETIRACETAM 500MG/5ML CUP PO SCH ×2 (09:01→22:09)
[2018-06-06] MEDS: ENOXAPARIN 40MG/0.4ML SYR SUBCUT SCH ×2 (09:02→21:47)
[2018-06-06] MEDS: FUROSEMIDE 100MG/10ML VIAL IVP SCH (09:04)
[2018-06-06 09:26] LABS: CHLORIDE 117 mEq/L (98-107)
[2018-06-06] MEDS: DEXTROSE 5% WATER 1,000 ML IV SCH (11:19)
[2018-06-06] MEDS: ACETAMINOPHEN 325MG TABLET PO PRN ×2 (11:41→18:26)
[2018-06-06] MEDS ORDERED: BARIUM SULFATE 450ML ORAL SUSP PO SCH (13:15)
[2018-06-06] MEDS ORDERED: DIATR MEGLU/DIATRIZOATE SOLN 30ML PO SCH (13:15)
[2018-06-06] MEDS: MEROPENEM 500 MG in SODIUM CHLORIDE 0.9% 50 ML IV SCH ×2 (16:24→21:48)
[2018-06-06 16:30] LABS: CLARITY URINE CLEAR (CLEAR); COLOR URINE DARK YELLOW (YELLOW); KETONES URINE TRACE (NEGATIVE); LEUKOCYTE ESTERASE URINE 1+ (NEGATIVE); NITRITE URINE POSITIVE (NEGATIVE); OCCULT BLOOD URINE 1+ (NEGATIVE); PROTEIN URINE TRACE (NEGATIVE); SPECIFIC GRAVITY URINE 1.032 (1.005-1.030)
[2018-06-07] VITALS (58 sets, daily range): BP systolic 81–145; BP diastolic 45–99
[2018-06-07] MEDS: ACETYLCYSTEINE 100MG/ML 10% VIAL 4ML INH SCH (00:24)
[2018-06-07] MEDS: IPRATROPIUM/ALBUTEROL 0.5-3(2.5)MG/3ML NEB HHN SCH ×5 (00:24→20:03)
[2018-06-07] MEDS: METOCLOPRAMIDE HCL 10MG/2ML VIAL IV SCH ×5 (01:14→23:35)
[2018-06-07] MEDS: DILTIAZEM HCL 30MG TABLET NG SCH ×5 (01:14→23:17)
[2018-06-07] MEDS: ACETAMINOPHEN 325MG TABLET PO PRN ×4 (01:17→23:36)
[2018-06-07] MEDS: MEROPENEM 500 MG in SODIUM CHLORIDE 0.9% 50 ML IV SCH ×3 (06:32→22:47)
[2018-06-07] MEDS: DEXTROSE 5% WATER 1,000 ML IV SCH (06:33)
[2018-06-07 07:02] LABS: BASOPHILS % 0.8 % (0.0-2.0); EOSINOPHILS % 2.2 % (0.0-5.0); HEMATOCRIT. 50.4 % (42.0-52.0); LYMPHOCYTES % 8.9 % (20.0-50.0); MEAN CORPUSCULAR HEMOGLOBIN 26.8 pg (28.0-32.0); MEAN CORPUSCULAR VOLUME 90.2 fL (80.0-94.0); MEAN PLATELET VOLUME 13.7 fl (7.4-10.4); MONOCYTES % 13.1 % (2.0-8.0); PLATELET 255 x1000/uL (130-400); RED BLOOD CELL COUNT 5.59 mill/uL (4.7-6.1); RED CELL DISTRIBUTION WIDTH 17.9 % (11.6-14.6)
[2018-06-07 08:11] LABS: CHLORIDE 116 mEq/L (98-107)
[2018-06-07] MEDS: SPIRONOLACTONE 25MG TABLET PO SCH (09:00)
[2018-06-07] MEDS: METOPROLOL TARTRATE 50MG TABLET PO SCH ×2 (09:00→20:03)
[2018-06-07] MEDS ORDERED: FUROSEMIDE 100MG/10ML VIAL IVP SCH (09:00)
[2018-06-07] MEDS: DOCUSATE SODIUM SUGAR FREE 100MG/10ML UDC NG SCH (09:39)
[2018-06-07] MEDS: POTASSIUM CHLORIDE 20MEQ/PACKET PO SCH ×2 (09:39→17:37)
[2018-06-07] MEDS: ENOXAPARIN 40MG/0.4ML SYR SUBCUT SCH ×2 (09:40→21:01)
[2018-06-07] MEDS: LEVETIRACETAM 500MG/5ML CUP PO SCH ×2 (09:40→21:01)
[2018-06-07] MEDS: PANTOPRAZOLE SODIUM 40 MG/VIAL IV SCH ×2 (09:41→21:01)
[2018-06-07] MEDS: RISPERIDONE 1MG TABLET PO SCH ×2 (09:42→21:01)
[2018-06-07] MEDS ORDERED: NOREPINEPHRINE 4MG/250ML PMX 250 ML IV SCH (10:30)
[2018-06-07 11:08] LABS: BG BASE EXCESS 7.5 mmol/L (-2.0-2.0); BG CARBOXYHEMOGLOBIN 0.5 % (0.5-1.5); BG DEOXYHEMOGLOBIN 4.2 % (0.0-5.0); BG HCO3 ACT 32.1 mmol/L (22.0-26.0); BG METHEMOGLOBIN 0.4 % (0.0-1.5); BG OXYGEN SATURATION 95.8 % (92.0-98.5); BG OXYHEMOGLOBIN 94.9 % (94.0-97.0); BG PCO2 44.4 mmHg (35.0-45.0); BG PH 7.477 (7.350-7.450); BG PO2 79.7 mmHg (75.0-100.0); BG SAMPLE SITE RIGHT RADIAL; BG TIDAL VOLUME(mL) 600 mL; BG TOTAL HEMOGLOBIN 16.3 g/dL (12.0-18.0); BG VENT MODE VENT - A/C; BG VENT RATE 16 set
[2018-06-07] MEDS: MIDODRINE HCL 5MG TABLET PO SCH ×2 (12:22→17:38)
[2018-06-07] MEDS ORDERED: NOREPINEPHRINE 4 MG in DEXT 5% WATER 246 ML IV SCH (13:00)
[2018-06-07] MEDS: PROPOFOL 10MG/ML 100ML 100 ML IV PRN ×3 (13:18→18:24)
[2018-06-07] MEDS: PHENYLEPHRINE 20 MG in DEXT 5% WATER 248 ML IV PRN ×2 (14:44→20:45)
[2018-06-07] MEDS: VANCOMYCIN 1,750 MG in DEXT 5% WATER 500 ML IV SCH (14:46)
[2018-06-08] VITALS (57 sets, daily range): BP systolic 25–138; BP diastolic 20–91
[2018-06-08] MEDS: IPRATROPIUM/ALBUTEROL 0.5-3(2.5)MG/3ML NEB HHN SCH ×4 (00:02→11:16)
[2018-06-08] MEDS: ACETYLCYSTEINE 100MG/ML 10% VIAL 4ML INH SCH ×2 (00:02→07:54)
[2018-06-08] MEDS: PHENYLEPHRINE 40 MG in DEXT 5% WATER 246 ML IV PRN ×3 (00:04→12:36)
[2018-06-08] MEDS: PROPOFOL 10MG/ML 100ML 100 ML IV PRN ×4 (00:18→09:49)
[2018-06-08] MEDS: VANCOMYCIN 1,750 MG in DEXT 5% WATER 500 ML IV SCH (02:24)
[2018-06-08] MEDS: DILTIAZEM HCL 30MG TABLET NG SCH ×2 (05:32→12:37)
[2018-06-08] MEDS: METOCLOPRAMIDE HCL 10MG/2ML VIAL IV SCH ×2 (05:36→12:36)
[2018-06-08] MEDS: MEROPENEM 500 MG in SODIUM CHLORIDE 0.9% 50 ML IV SCH (05:36)
[2018-06-08 05:46] LABS: BASOPHILS % 0.6 % (0.0-2.0); EOSINOPHILS % 1.6 % (0.0-5.0); HEMATOCRIT. 49.7 % (42.0-52.0); HEMOGLOBIN. 14.7 g/dL (14.0-18.0); LYMPHOCYTES % 12.1 % (20.0-50.0); MEAN CORPUSCULAR VOLUME 91.6 fL (80.0-94.0); MEAN PLATELET VOLUME 13.6 fl (7.4-10.4); MONOCYTES % 12.9 % (2.0-8.0); NEUTROPHILS % 72.8 % (40.0-76.0); PLATELET 200 x1000/uL (130-400); RED BLOOD CELL COUNT 5.43 mill/uL (4.7-6.1); RED CELL DISTRIBUTION WIDTH 18.4 % (11.6-14.6)
[2018-06-08 05:54] LABS: CHLORIDE 112 mEq/L (98-107)
[2018-06-08] MEDS: METOPROLOL TARTRATE 50MG TABLET PO SCH (09:00)
[2018-06-08] MEDS: DOCUSATE SODIUM SUGAR FREE 100MG/10ML UDC NG SCH (09:02)
[2018-06-08] MEDS: POTASSIUM CHLORIDE 20MEQ/PACKET PO SCH (09:02)
[2018-06-08] MEDS: LEVETIRACETAM 500MG/5ML CUP PO SCH (09:02)
[2018-06-08] MEDS: PANTOPRAZOLE SODIUM 40 MG/VIAL IV SCH (09:02)
[2018-06-08] MEDS: ENOXAPARIN 40MG/0.4ML SYR SUBCUT SCH (09:03)
[2018-06-08] MEDS: MIDODRINE HCL 5MG TABLET PO SCH ×2 (09:03→12:37)
[2018-06-08] MEDS: RISPERIDONE 1MG TABLET PO SCH (09:03)
[2018-06-08 09:38] LABS: BG BASE EXCESS 5.6 mmol/L (-2.0-2.0); BG CARBOXYHEMOGLOBIN 0.7 % (0.5-1.5); BG DEOXYHEMOGLOBIN 5.9 % (0.0-5.0); BG FRACTION INSPIRED OXYGEN 100; BG HCO3 ACT 31.2 mmol/L (22.0-26.0); BG METHEMOGLOBIN 0.3 % (0.0-1.5); BG OXYHEMOGLOBIN 93.1 % (94.0-97.0); BG PCO2 48.9 mmHg (35.0-45.0); BG PH 7.423 (7.350-7.450); BG PO2 72.2 mmHg (75.0-100.0); BG SAMPLE SITE LEFT RADIAL; BG TIDAL VOLUME(mL) 600 mL; BG TOTAL HEMOGLOBIN 15.3 g/dL (12.0-18.0); BG VENT MODE VENT - A/C; BG VENT RATE 16 set
[2018-06-08] MEDS: ACETAMINOPHEN 325MG TABLET PO PRN (12:37)
[2018-06-08] MEDS ORDERED: CALCIUM CHLORIDE 1GM/10ML SYR IV ONE (14:34)
[2018-06-08] MEDS ORDERED: EPINEPHRINE 0.1MG/ML (1:10,000) 10ML SYR ONE (14:34)
[2018-06-08] MEDS ORDERED: SODIUM BICARBONATE 8.4% MEQ/ML 50ML VIAL IV ONE (14:34)
== END 2018-06-08 17:50 | disposition expired | DRG 5 ==
LOC: ER 14:16 → EDBEDREQ 17:34 → CVICU 22:31 → EDBEDREQTM 22:35 → EDBEDREQSVC 22:35 → EDBEDREQ 22:35 → ENRESERV 05-15 10:33 → 5EST 05-31 23:39 → MICUSO 06-07 11:57
PROVIDERS: ADMIT Internal Medicine; ATTEND Internal Medicine
PROC: 5A1955Z Respiratory Ventilation, Greater than 96 Consecutive Hours (ICD-10-PCS; principal; 2018-05-14)
PROC: 02HV33Z Insertion of Infusion Device into Superior Vena Cava, Percutaneous Approach (ICD-10-PCS; 2018-05-14)
PROC: B548ZZA Ultrasonography of Superior Vena Cava, Guidance (ICD-10-PCS; 2018-05-14)
PROC: 0BH17EZ Insertion of Endotracheal Airway into Trachea, Via Natural or Artificial Opening (ICD-10-PCS; 2018-05-14)
PROC: 5A09357 Assistance with Respiratory Ventilation, Less than 24 Consecutive Hours, Continuous Positive Airway Pressure (ICD-10-PCS; 2018-05-21)
PROC: 0BH17EZ Insertion of Endotracheal Airway into Trachea, Via Natural or Artificial Opening (ICD-10-PCS; 2018-05-22)
PROC: 5A1955Z Respiratory Ventilation, Greater than 96 Consecutive Hours (ICD-10-PCS; 2018-05-22)
PROC: 02HV33Z Insertion of Infusion Device into Superior Vena Cava, Percutaneous Approach (ICD-10-PCS; 2018-05-23)
PROC: B548ZZA Ultrasonography of Superior Vena Cava, Guidance (ICD-10-PCS; 2018-05-23)
PROC: 0B110F4 Bypass Trachea to Cutaneous with Tracheostomy Device, Open Approach (ICD-10-PCS; 2018-05-28)
PROC: 0DH63UZ Insertion of Feeding Device into Stomach, Percutaneous Approach (ICD-10-PCS; 2018-05-29)
PROC: 4A00X4Z Measurement of Central Nervous Electrical Activity, External Approach (ICD-10-PCS; 2018-05-29)
PROC: 5A12012 Performance of Cardiac Output, Single, Manual (ICD-10-PCS; 2018-06-08)
DX: A41.9 Sepsis, unspecified organism (principal); R65.21 Severe sepsis with septic shock; J69.0 Pneumonitis due to inhalation of food and vomit; G93.40 Encephalopathy, unspecified; I13.2 Hypertensive heart and chronic kidney disease with heart failure and with stage 5 chronic kidney disease, or end stage renal disease; J96.21 Acute and chronic respiratory failure with hypoxia; E46 Unspecified protein-calorie malnutrition; E72.20 Disorder of urea cycle metabolism, unspecified; D68.9 Coagulation defect, unspecified; N17.9 Acute kidney failure, unspecified; I47.1 Supraventricular tachycardia; E11.22 Type 2 diabetes mellitus with diabetic chronic kidney disease; J96.22 Acute and chronic respiratory failure with hypercapnia; I48.91 Unspecified atrial fibrillation; I50.23 Acute on chronic systolic (congestive) heart failure; E66.2 Morbid (severe) obesity with alveolar hypoventilation; E87.0 Hyperosmolality and hypernatremia; E87.2 Acidosis; I31.3 Pericardial effusion (noninflammatory); I42.9 Cardiomyopathy, unspecified; E87.8 Other disorders of electrolyte and fluid balance, not elsewhere classified; E87.6 Hypokalemia; F79 Unspecified intellectual disabilities; N39.0 Urinary tract infection, site not specified; J44.9 Chronic obstructive pulmonary disease, unspecified; E78.1 Pure hyperglyceridemia; E88.81 Metabolic syndrome and other insulin resistance; F17.210 Nicotine dependence, cigarettes, uncomplicated; J44.0 Chronic obstructive pulmonary disease with (acute) lower respiratory infection; K29.70 Gastritis, unspecified, without bleeding; N18.6 End stage renal disease; R13.12 Dysphagia, oropharyngeal phase; Z78.1 Physical restraint status; Z79.899 Other long term (current) drug therapy; Z68.42 Body mass index [BMI] 45.0-49.9, adult; Z99.11 Dependence on respirator [ventilator] status; Z71.3 Dietary counseling and surveillance
CPT/HCPCS: 31500; 36415; 36569; 36600; 71045; 76937; 80048; 80061; 80202; 82140; 82375; 82805; 82962; 83036; 83880; 84145; 84443; 84478; 84484; 85027; 87070; 87077; 87106; 87186; 87804; 93005; 93306; 93970; 94002; 94003; 94640; 94660; 94667; 96374; 96375; 97162; 99285; A6261; C1725; C9113; J0330; J0690; J1170; J1630; J1650; J1940; J1953; J2060; J2185; J2250; J2270; J2370; J2543; J2704; J2765; J2920; J2930; J3010; J3370; J3480; J3490; J7040; J7050; J7060; J7070; J7512; J7608; J7620